=== PATIENT | female | born 1975 | race Caucasian/White ===

== ENCOUNTER 2017-02-04 10:39 | Inpatient (IN) | payer MEDICAID ==
[~2017-02-04] VITALS: Ht 157.5 cm; Wt 75.0 kg
[2017-02-04 10:43] VITALS: Ht 157.5 cm; Wt 75.0 kg
[2017-02-04] MEDS ORDERED: SOD CHLORIDE 0.9% 1,000 ML IV STA (11:36)
[2017-02-04 12:21] LABS: BASOPHILS % 0.2 % (0.0-2.0); HEMOGLOBIN 13.6 g/dl (12.0-16.0); LYMPHOCYTES # 1.1 10^3/ul (0.8-2.9); LYMPHOCYTES % 8.4 % (15.0-51.0); MEAN CORPUSCULAR HEMOGLOBIN 27.6 pg (29.0-33.0); MEAN CORPUSCULAR VOLUME 81.1 fl (82.0-101.0); MONOCYTE # 0.6 10^3/ul (0.3-0.9); MONOCYTES % 4.4 % (0.0-11.0); NEUTROPHIL # 11.1 10^3/ul (1.6-7.5); NEUTROPHILS % 86.8 % (39.0-77.0); PLATELET COUNT 354 10^3/UL (140-415); RED BLOOD COUNT 4.93 10^6/ul (4.20-5.40); RED CELL DISTRIBUTION WIDTH 13.9 % (11.5-14.5); WHITE BLOOD COUNT 12.8 10^3/ul (4.8-10.8)
[2017-02-04] MEDS ORDERED: KETOROLAC 30 MG INJ IV STA (12:38)
[2017-02-04 12:42] LABS: ALBUMIN 3.9 g/dl (3.3-4.9); ALBUMIN/GLOBULIN RATIO 1.14; BILIRUBIN,INDIRECT 0.5 mg/dl (0-1.1); BILIRUBIN,TOTAL 0.5 mg/dl (0.2-1.3); CALCIUM 8.6 mg/dl (8.4-10.2); CREATININE 0.53 mg/dl (0.44-1.00); POTASSIUM 3.3 mmol/L (3.5-5.1); TOTAL PROTEIN 7.3 g/dl (6.1-8.1)
[2017-02-04] MEDS ORDERED: SOD CHLORIDE 0.9% 100 ML ONE (12:55)
[2017-02-04] MEDS ORDERED: IOHEXOL 300MG/ML 150 ML BTL ONE (12:55)
[2017-02-04 13:14] LABS: ADD UMIC YES; UR ASCORBIC ACID NEGATIVE (NEGATIVE); UR BACTERIA FEW /HPF (NONE SEEN); UR BILIRUBIN (Dip) NEGATIVE (NEGATIVE); UR BLOOD (Dip) 1+ mg/dL (NEGATIVE); UR CLARITY CLEAR (CLEAR); UR COLOR YELLOW (YELLOW); UR GLUCOSE (Dip) NEGATIVE (NEGATIVE); UR KETONES (Dip) NEGATIVE (NEGATIVE); UR LEUKOCYTE ESTERASE (Dip) NEGATIVE Leu/ul (NEGATIVE); UR NITRITE (Dip) NEGATIVE (NEGATIVE); UR RBC 1 /HPF (0-5); UR SPECIFIC GRAVITY (Dip) 1.005 (1.003-1.030); UR TOTAL PROTEIN (Dip) NEGATIVE (NEGATIVE); UR UROBILINOGEN (Dip) NEGATIVE (NEGATIVE)
--- NOTE | 2017-02-04 14:09 | RADRPT ---
PROCEDURE: CT Abdomen and Pelvis with contrast. CLINICAL INDICATION: Abdominal pain. TECHNIQUE: CT scan of the abdomen and pelvis with contrast was performed on a multi-detector high- resolution CT scanner. The patient was scanned following the uncomplicated intravenous administrati on of 100 cc of Omnipaque 300. Coronal and sagittal reformatted images were obtained from the axial source images. One or more of the following dose reduction techniques were used: Automated exposur e control, adjustment of the mA and/or kV according to patient size, use of iterative reconstructio n technique. Images were reviewed on a high-resolution PACS workstation. The total exam CTDI equals 14.93 mGy and the total exam DLP equals 893.2 mGy-cm. COMPARISON: None available. FINDINGS: CT abdomen: Minimal bilateral lower lobe dependent atelectatic changes are present. A 7 mm calcified granuloma is present in the right middle lobe. Otherwise, the lung bases are clear. The heart size is normal , without pericardial thickening or effusion. There is extensive peripancreatic fluid and fat stranding with fluid extending into the bilateral pe ricolic gutters, subhepatic and subsplenic regions, as well as diffuse mesenteric fat stranding and fluid seen anteriorly within the upper abdomen. There is no evidence of organized fluid collection t o suggest abscess or pseudocyst. There is no evidence of focal hypoenhancing pancreatic region to amanda ggest necrosis. The liver is enlarged measuring 23 cm without focal mass or intrahepatic biliary dilatation. The sp vic is normal in size and homogeneous in density. The stomach is partially collapsed, but is gross ly unremarkable. Several stones are present within the gallbladder. The biliary tree is unremarkab le without evidence for biliary dilatation. The adrenal glands are symmetric and normal. The kidne ys are unremarkable. No renal calculus or obstructive uropathy or mass lesion is seen. The aorta is of normal caliber. There is no retroperitoneal lymphadenopathy. The david hepatis re gion is clear. The proximal small bowel loops are not diffusely fluid-filled and mildly distended. No definite transition point is seen. There is a small fat-containing umbilical hernia. CT pelvis: The small bowel loops situated within the pelvis are unremarkable. Bilateral fallopian occlusion de vices are present. The pelvic sidewalls and inguinal regions are clear. The sigmoid colon and rect um are unremarkable. The appendix is normal. No mass or lymphadenopathy is seen. A small amount of pelvic free fluid is likely physiologic. The bladder is normal. The surrounding osseous structures are unremarkable. No osteolytic or osteoblastic lesion is detect ed. IMPRESSION: 1. Extensive peripancreatic fat stranding and fluid extending into the surrounding mesentery and bi lateral pericolic gutters, consistent with severe acute pancreatitis. No evidence of organized fluid collection to suggest abscess or pseudocyst. 2. Moderately distended, fluid filled small bowel loops without evidence of transition point. The f indings most likely representing ileus. Follow-up abdominal x-rays may be obtained for further evalu ation. 3. Cholelithiasis without evidence of cholecystitis. 4. Hepatomegaly. 5. Small amount of pelvic free fluid, likely reactive or physiologic. RPTAT: JJ .Rodrigo Stone MD, Date Time Electronically viewed and signed by .Rodrigo Stone MD, on 02/04/2017 14:08 .A/
[2017-02-04] MEDS ORDERED: HYDROmorphONE 1 MG/ML SYG IV STA (14:28)
[2017-02-04] MEDS ORDERED: ONDANSETRON 4 MG INJ IV STA (14:28)
--- NOTE | 2017-02-04 14:49 | ERA ---
ER Documentation Chief Complaint Date/Time DATE: 02/04/17 TIME: 14:44 Chief Complaint Complains of abdominal pain and vomiting since last night HPI 41-year-old female complaining of abdominal pain 2 days. Patient states her abdominal pain is constant and worsening. Denies fevers but has episodes of vomiting 1 day. Has not taken medications for her symptoms. Has never experienced abdominal pain like this before. Denies sick contacts. Denies change in urination or bowel movements. Denies medical problems. NKDA. Surgical history denies. Social history: 1 cigarette a day. LNMP: 2 days ago ROS All systems reviewed and are negative except as per history of present illness. Allergies Allergies: Coded Allergies: No Known Allergy (Unverified , 02/04/17) PMhx/Soc Medical and Surgical Hx: pt denies Medical Hx, pt denies Surgical Hx Hx Alcohol Use: No Hx Substance Use: No Hx Tobacco Use: Yes (1cig/day) Smoking Status: Light tobacco smoker Physical Exam Vitals Vital Signs Date Time Temp Pulse Resp B/P Pulse Ox O2 Delivery O2 Flow Rate FiO2 02/04/17 10:43 98.2 106 20 113/62 99 Physical Exam GENERAL: The patient is well-appearing, well-nourished, in no acute distress CHEST: Clear to auscultation bilaterally. There are no rales, wheezes or rhonchi. HEART: Regular rate and rhythm. No murmurs, clicks, rubs or gallops. No S3 or S4. ABDOMEN: Nondistended. Diffuse tenderness to palpation over the abdomen. No organomegally. BACK: No midline or flank tenderness. SKIN: There is no apparent rash or petechiae. The skin is warm and dry. Result Diagram: 02/04/17 1152 02/04/17 1152 Results 24 hrs Laboratory Tests Test 02/04/17 11:52 02/04/17 12:47 White Blood Count 12.810^3/ul Red Blood Count 4.9310^6/ul Hemoglobin 13.6g/dl Hematocrit 40.0% Mean Corpuscular Volume 81.1fl Mean Corpuscular Hemoglobin 27.6pg Mean Corpuscular Hemoglobin Concent 34.0g/dl Red Cell Distribution Width 13.9% Platelet Count 84696^3/UL Mean Platelet Volume 10.0fl Neutrophils % 86.8% Lymphocytes % 8.4% Monocytes % 4.4% Eosinophils % 0.0% Basophils % 0.2% Nucleated Red Blood Cells % 0.0/100WBC Neutrophils # 11.110^3/ul Lymphocytes # 1.110^3/ul Monocytes # 0.610^3/ul Eosinophils # 0.010^3/ul Basophils # 0.010^3/ul Nucleated Red Blood Cells # 0.010^3/ul Sodium Level 137mmol/L Potassium Level 3.3mmol/L Chloride Level 100mmol/L Carbon Dioxide Level 27mmol/L Anion Gap 13 Blood Urea Nitrogen 6mg/dl Creatinine 0.53mg/dl Glucose Level 135mg/dl Calcium Level 8.6mg/dl Total Bilirubin 0.5mg/dl Direct Bilirubin 0.00mg/dl Indirect Bilirubin 0.5mg/dl Aspartate Amino Transf (AST/SGOT) 28IU/L Alanine Aminotransferase (ALT/SGPT) 45IU/L Alkaline Phosphatase 73IU/L Total Protein 7.3g/dl Albumin 3.9g/dl Globulin 3.40g/dl Albumin/Globulin Ratio 1.14 Lipase 599U/L Serum HCG, Qualitative NEGATIVE Urine Color YELLOW Urine Clarity CLEAR Urine pH 7.0 Urine Specific [place] 1.005 Urine Ketones NEGATIVEmg/dL Urine Nitrite NEGATIVEmg/dL Urine Bilirubin NEGATIVEmg/dL Urine Urobilinogen NEGATIVEmg/dL Urine Leukocyte Esterase NEGATIVELeu/ul Urine Microscopic RBC 1/HPF Urine Microscopic WBC 1/HPF Urine Bacteria FEW/HPF Urine Hemoglobin 1+mg/dL Urine Glucose NEGATIVEmg/dL Urine Total Protein NEGATIVEmg/dl Current Medications Medications (Trade) Dose Ordered Sig/Terrie Route PRN Reason Start Time Stop Time Status Last Admin Dose Admin Sodium Chloride (NS) 1,000 ml @ 1,000 mls/hr Q1H STAT IV 02/04/17 11:36 02/04/17 12:35 DC 02/04/17 12:00 Ketorolac Tromethamine (Toradol) 30 mg ONCE STAT IV 02/04/17 12:38 02/04/17 12:39 DC 02/04/17 13:14 IV Flush 10 ml 10 ml STK-MED ONCE .ROUTE 02/04/17 12:55 02/04/17 12:56 DC 02/04/17 13:53 Sodium Chloride (NS) 100 ml @ ud STK-MED ONCE .ROUTE 02/04/17 12:55 02/04/17 12:56 DC 02/04/17 13:54 Iohexol (Omnipaque 300mg/ ml) 150 ml STK-MED ONCE .ROUTE 02/04/17 12:55 02/04/17 12:56 DC 02/04/17 12:55 Hydromorphone HCl (Dilaudid) 1 mg ONCE STAT IV 02/04/17 14:28 02/04/17 14:29 DC 02/04/17 14:43 Ondansetron HCl (Zofran Inj) 4 mg ONCE STAT IV 02/04/17 14:28 02/04/17 14:29 DC 02/04/17 14:42 Procedures/MDM DIAGNOSTIC IMAGING REPORT Patient: JASMIN CAAL : 1975 Age: 41 Sex: F MR #: [id number] DOS: 02/04/17 1136 Ordering MD: ESTELA LEWIS PA-C Location: [facility] Room/Bed: PROCEDURE: CT Abdomen and Pelvis with contrast. CLINICAL INDICATION: Abdominal pain. TECHNIQUE: CT scan of the abdomen and pelvis with contrast was performed on a multi-detector high-resolution CT scanner. The patient was scanned following the uncomplicated intravenous administration of 100 cc of Omnipaque 300. Coronal and sagittal reformatted images were obtained from the axial source images. One or more of the following dose reduction techniques were used: Automated exposure control, adjustment of the mA and/or kV according to patient size, use of iterative reconstruction technique. Images were reviewed on a high -resolution PACS workstation. The total exam CTDI equals 14.93 mGy and the total exam DLP equals 893.2 mGy-cm. COMPARISON: None available. FINDINGS: CT abdomen: Minimal bilateral lower lobe dependent atelectatic changes are present. A 7 mm calcified granuloma is present in the right middle lobe. Otherwise, the lung bases are clear. The heart size is normal, without pericardial thickening or effusion. There is extensive peripancreatic fluid and fat stranding with fluid extending into the bilateral pericolic gutters, subhepatic and subsplenic regions, as well as diffuse mesenteric fat stranding and fluid seen anteriorly within the upper abdomen. There is no evidence of organized fluid collection to suggest abscess or pseudocyst. There is no evidence of focal hypoenhancing pancreatic region to suggest necrosis. The liver is enlarged measuring 23 cm without focal mass or intrahepatic biliary dilatation. The spleen is normal in size and homogeneous in density. The stomach is partially collapsed, but is grossly unremarkable. Several stones are present within the gallbladder. The biliary tree is unremarkable without evidence for biliary dilatation. The adrenal glands are symmetric and normal. The kidneys are unremarkable. No renal calculus or obstructive uropathy or mass lesion is seen. The aorta is of normal caliber. There is no retroperitoneal lymphadenopathy. The david hepatis region is clear. The proximal small bowel loops are not diffusely fluid-filled and mildly distended. No definite transition point is seen. There is a small fat-containing umbilical hernia. CT pelvis: The small bowel loops situated within the pelvis are unremarkable. Bilateral fallopian occlusion devices are present. The pelvic sidewalls and inguinal regions are clear. The sigmoid colon and rectum are unremarkable. The appendix is normal. No mass or lymphadenopathy is seen. A small amount of pelvic free fluid is likely physiologic. The bladder is normal. The surrounding osseous structures are unremarkable. No osteolytic or osteoblastic lesion is detected. IMPRESSION: 1. Extensive peripancreatic fat stranding and fluid extending into the surrounding mesentery and bilateral pericolic gutters, consistent with severe acute pancreatitis. No evidence of organized fluid collection to suggest abscess or pseudocyst. 2. Moderately distended, fluid filled small bowel loops without evidence of transition point. The findings most likely representing ileus. Follow-up abdominal x-rays may be obtained for further evaluation. 3. Cholelithiasis without evidence of cholecystitis. 4. Hepatomegaly. 5. Small amount of pelvic free fluid, likely reactive or physiologic. ER Course: 1 L NS given in ED with Toradol. US gallbladder pending at this time. Dilaudid and Zofran given in ED. MDM: 41-year-old female complaining of abdominal pain. Patient's CT scan shows severe pancreatitis. Patient will be admitted. Case was discussed with Dr. Burdick and he will carry through with admission. Patient is stable upon reevaluation and understands diagnosis. Patient is stable and vital signs are stable upon reevaluation. Patient will be given medication for pain control. Departure Diagnosis: Primary Impression: Pancreatitis Condition: Serious JOANNE LEWIS PA-C Feb 04, 2017 14:49
--- NOTE | 2017-02-04 15:22 | RADRPT ---
PROCEDURE: Abdominal Ultrasound (right upper quadrant). CLINICAL INDICATION: Abdominal pain. Pancreatitis. TECHNIQUE: Multiple real-time longitudinal and transverse images of the right upper quadrant of th e abdomen were acquired utilizing a curved array transducer. Images were reviewed on a high-resoluti on PACS workstation. COMPARISON: CT abdomen pelvis 02/04/2017 FINDINGS: The liver demonstrates increased echogenicity consistent with fatty infiltration. Liver is at the u pper limits of normal for size. No focal masses are identified. There is no evidence of intra or e xtrahepatic ductal dilatation. The common bile duct measures 5.7 mm in diameter. Gallstones are vivian ntified within the gallbladder. Gallbladder wall is not well evaluated due to contracted state of th e gallbladder. There is no obvious gallbladder wall thickening. The pancreas is obscured by bowel gas No free fluid is identified. There is no evidence of right hydronephrosis or renal calcification. The right kidney measures 11.1 cm in length. The visualized portions of the aorta and inferior vena cava are within normal limits. IMPRESSION: 1. Cholelithiasis. No definitive gallbladder wall thickening of the gallbladder is contracted which limits evaluation. 2. Fatty infiltration of the liver. 3. Nonvisualization of the pancreas. 4. Otherwise unremarkable right upper quadrant ultrasound. Recommend correlation with CT abdomen pe lvis performed concurrently. RPTAT: KK .Addy David MD, MD Date Time Electronically viewed and signed by .Addy David MD, MD on 02/04/2017 15:21 .B/
[2017-02-04] MEDS ORDERED: ONDANSETRON 4 MG INJ IV PRN (16:00)
[2017-02-04] MEDS ORDERED: ACETAMINOPHEN 325 MG TAB PO PRN ×2 (16:00→17:00)
[2017-02-04] MEDS ORDERED: POTASSIUM CHLORIDE (SR) 20 MEQ TAB PO STA (16:40)
[2017-02-04] MEDS ORDERED: ONDANSETRON 4 MG TAB PO PRN (17:00)
[2017-02-04] MEDS ORDERED: NACL 0.9% 3 ML SYG IV SCH (17:00)
[2017-02-04] MEDS ORDERED: DOCUSATE SODIUM 100 MG CAP PO PRN (17:00)
[2017-02-04] MEDS ORDERED: METOCLOPRAMIDE 10 MG INJ IV PRN (17:00)
[2017-02-04] MEDS ORDERED: MAGNESIUM HYDROXIDE 30ML CUP PO PRN (17:00)
[2017-02-04] MEDS: SOD CHLORIDE 0.9% 1,000 ML IV SCH ×2 (17:10→23:33)
--- NOTE | 2017-02-04 18:39 | HP ---
Date/Time of Note Date/Time of Note DATE: 02/04/17 TIME: 18:35 Assessment/Plan VTE Prophylaxis VTE Prophylaxis Intervention: SCD's Assessment/Plan Assessment/Plan 41 yo F with no known chronic medical conditions presents with 2 days of vomiting, abd pain. Elevated lipase concerning for pancreatitis. Etio unclear as pt with gallstones but no evidence of biliary obstruction, no known hx heavy EtOH abuse -IVFs and NPO -check a1c and lipids -consider repeat imaging in 1-2 days if pain not improving HPI/ROS Admit Date/Time Admit Date/Time Hx of Present Illness CC abd pain HPI 41 yo F with no known pmhx presents with 2 days diffuse abd pain though mostly in epigastric area. +vomiting PMH/Family/Social Family History Significant Family History: diabetes Social History lives in the community rare EtOH Smoking Status: Light tobacco smoker Exam/Review of Systems Vital Signs Vitals Vital Signs Date Time Temp Pulse Resp B/P Pulse Ox O2 Delivery O2 Flow Rate FiO2 02/04/17 16:02 98.8 88 18 103/56 98 Room Air Exam Exam nad laying in bed EOMI MMM no jaundice rrr lungs clear abd diffusely ttp most pronounced in epigastric region, no rebound or guarding no edema imaging reviewed, lipase elevated Labs Result Diagram: 02/04/17 1152 02/04/17 1152 Medications Medications Current Medications Sodium Chloride (NS) 1,000 ml @ 125 mls/hr Q8H IV Last administered on t 17:10; Admin Dose 125 MLS/HR; Start 02/04/17 at 16:36 Ondansetron HCl (Zofran Tab) 4 mg Q6H PRN PO NAUSEA AND/OR VOMITING; Start at 17:00 Ondansetron HCl (Zofran Inj) 4 mg Q6H PRN IV NAUSEA AND/OR VOMITING; Start at 17:00 Metoclopramide HCl (Reglan) 10 mg Q6H PRN IV NAUSEA AND/OR VOMITING; Start at 17:00 Acetaminophen (Tylenol Tab) 650 mg Q6H PRN PO PAIN LEVEL 1-3 OR FEVER; Start at 17:00 Acetaminophen/ Hydrocodone Bitart ([place] (5/325)) 1 tab Q6H PRN PO MODERATE PAIN LEVEL 4-6; Start 02/04/17 at 17:00 Morphine Sulfate (morphine) 2 mg Q4H PRN IV SEVERE PAIN LEVEL 7-10; Start 02/04 at 17:00 Docusate Sodium (Colace) 100 mg Q12H PRN PO CONSTIPATION; Start 02/04/17 at 17: 00 Magnesium Hydroxide (Milk Of Mag) 30 ml DAILY PRN PO CONSTIPATION; Start at 17:00 Enoxaparin Sodium (Lovenox) 40 mg DAILY SC ; Start 02/05/17 at 09:00 RHEA LUKE MD Feb 04, 2017 18:38
[2017-02-04 19:06] LABS: CHOL/HDL RATIO 5.6 RATIO
[2017-02-04 19:16] VITALS: PULSE 88; TEMP 98.8
[2017-02-04 20:15] VITALS: BP 117/58; RESP 19
[2017-02-04] MEDS: ONDANSETRON 4 MG INJ IV PRN (20:19)
[2017-02-04] MEDS: morphine 2 MG INJ IV PRN (20:19)
[2017-02-04] MEDS: HYDROCODONE/APAP (5/325) TAB PO PRN (22:16)
[2017-02-05 02:15] VITALS: BP 107/57; RESP 18
[2017-02-05] MEDS: ONDANSETRON 4 MG INJ IV PRN (02:29)
[2017-02-05] MEDS: morphine 2 MG INJ IV PRN ×5 (02:30→21:31)
[2017-02-05 06:26] LABS: BASOPHILS % 0.2 % (0.0-2.0); EOSINOPHILS # 0.1 10^3/ul (0.0-0.5); EOSINOPHILS % 0.5 % (0.0-7.0); HEMATOCRIT 35.7 % (37.0-47.0); LYMPHOCYTES # 1.2 10^3/ul (0.8-2.9); LYMPHOCYTES % 8.9 % (15.0-51.0); MEAN CORPUSCULAR HEMOGLOBIN 28.5 pg (29.0-33.0); MEAN CORPUSCULAR HGB CONC 33.6 g/dl (32.0-37.0); MEAN CORPUSCULAR VOLUME 84.8 fl (82.0-101.0); MEAN PLATELET VOLUME 10.1 fl (7.4-10.4); MONOCYTE # 0.8 10^3/ul (0.3-0.9); NEUTROPHILS % 83.9 % (39.0-77.0); PLATELET COUNT 318 10^3/UL (140-415); RED BLOOD COUNT 4.21 10^6/ul (4.20-5.40); RED CELL DISTRIBUTION WIDTH 14.2 % (11.5-14.5); WHITE BLOOD COUNT 13.1 10^3/ul (4.8-10.8)
[2017-02-05 06:41] LABS: POSITIVE DIFF @See below
[2017-02-05 07:08] LABS: ALBUMIN 3.3 g/dl (3.3-4.9); ALBUMIN/GLOBULIN RATIO 1.03; BILIRUBIN,INDIRECT 0.5 mg/dl (0-1.1); BILIRUBIN,TOTAL 0.5 mg/dl (0.2-1.3); CALCIUM 8.1 mg/dl (8.4-10.2); CREATININE 0.73 mg/dl (0.44-1.00); POTASSIUM 3.4 mmol/L (3.5-5.1); TOTAL PROTEIN 6.5 g/dl (6.1-8.1)
[2017-02-05] MEDS: SOD CHLORIDE 0.9% 1,000 ML IV SCH ×2 (07:52→16:42)
[2017-02-05 08:24] VITALS: BP 112/66; RESP 18
[2017-02-05] MEDS: ENOXAPARIN 40 MG/0.4 ML SYG SC SCH (08:48)
[2017-02-05] MEDS: HYDROCODONE/APAP (5/325) TAB PO PRN ×2 (14:00→20:39)
[2017-02-05 14:23] VITALS: BP 116/63; RESP 18
--- NOTE | 2017-02-05 15:52 | PN ---
Date/Time of Note Date/Time of Note DATE: 02/05/17 TIME: 15:42 Assessment/Plan VTE Prophylaxis VTE Prophylaxis Intervention: LMWH Assessment/Plan Assessment/Plan 1. Acute pancreatitis, still has severe abdominal pain but no nausea or vomiting , may be able to start diet tomorrow 2. Cholelithiasis 3. Hypertriglyceridemia, repeat 4. DVT prophylaxis: lovenox Subjective 24 Hr Interval Summary Free Text/Dictation severe abdominal pain, less than yesterday, no nausea or vomiting Exam/Review of Systems Vital Signs Vitals Vital Signs Date Time Temp Pulse Resp B/P Pulse Ox O2 Delivery O2 Flow Rate FiO2 02/05/17 14:23 99.5 104 18 116/63 94 02/04/17 19:16 Room Air Intake and Output 02/04/17 02/04/17 02/05/17 15:00 23:00 07:00 Intake Total 650 ml Balance 650 ml Exam Constitutional: alert, oriented, well developed Psych: nl mood/affect, no complaints Head: atraumatic, normocephalic Eyes: EOMI, nl conjunctiva, nl lids ENMT: nl external ears & nose, nl lips & teeth, nl nasal mucosa & septum Neck: non-tender, supple Respiratory: clear to auscultation, normal air movement, No congested cough, No crackles/rales, No diminished breath sounds, No intercostal retraction, No labored breathing, No other, No respirations, No tactile fremitus, No wheezing Cardiovascular: nl pulses, regular rate and rhythm, No S3, No S4, No bruits, No diastolic murmur, No edema, No gallop, No irregular rhythm, No jugular venous distention (JVD), No murmurs/extra sounds, No other, No rub, No systolic murmur Gastrointestinal: nl liver, spleen, tender (upper abdominal tenderness) Musculoskeletal: nl extremities to inspection Extremities: normal pulses, No calf tenderness, No clubbing, No cyanosis, No edema, No other, No palpable cord, No pitting pedal edema, No tenderness Neurological: CHIEF VENDOR QUALITY II-XII intact, nl mental status, nl speech, nl strength Results Result Diagram: 02/05/17 0533 02/05/17 0533 Results 24 hrs Laboratory Tests Test 02/04/17 16:40 02/04/17 17:00 02/05/17 05:33 Ethyl Alcohol Level < 10.0 Hemoglobin A1c 5.9 Triglycerides Level 451 H Cholesterol Level 186 LDL Cholesterol, Calculated 63 HDL Cholesterol 33 L Cholesterol/HDL Ratio 5.6 White Blood Count 13.1 H Red Blood Count 4.21 Hemoglobin 12.0 Hematocrit 35.7 L Mean Corpuscular Volume 84.8 Mean Corpuscular Hemoglobin 28.5 L Mean Corpuscular Hemoglobin Concent 33.6 Red Cell Distribution Width 14.2 Platelet Count 318 Mean Platelet Volume 10.1 Neutrophils % 83.9 H Lymphocytes % 8.9 L Monocytes % 6.0 Eosinophils % 0.5 Basophils % 0.2 Nucleated Red Blood Cells % 0.0 Neutrophils # 11.0 H Lymphocytes # 1.2 Monocytes # 0.8 Eosinophils # 0.1 Basophils # 0.0 Nucleated Red Blood Cells # 0.0 Sodium Level 143 Potassium Level 3.4 L Chloride Level 109 Carbon Dioxide Level 28 Anion Gap 9 Blood Urea Nitrogen 8 Creatinine 0.73 Glucose Level 128 Calcium Level 8.1 L Total Bilirubin 0.5 Direct Bilirubin 0.00 Indirect Bilirubin 0.5 Aspartate Amino Transf (AST/SGOT) 28 Alanine Aminotransferase (ALT/SGPT) 42 Alkaline Phosphatase 74 Total Protein 6.5 Albumin 3.3 Globulin 3.20 Albumin/Globulin Ratio 1.03 Medications Medications Current Medications Sodium Chloride (NS) 1,000 ml @ 125 mls/hr Q8H IV Last administered on 07:52; Admin Dose 125 MLS/HR; Start 02/04/17 at 16:36 Ondansetron HCl (Zofran Tab) 4 mg Q6H PRN PO NAUSEA AND/OR VOMITING; Start at 17:00 Ondansetron HCl (Zofran Inj) 4 mg Q6H PRN IV NAUSEA AND/OR VOMITING Last administered on 02/05/17 02:29; Admin Dose 4 MG; Start 02/04/17 at 17:00 Metoclopramide HCl (Reglan) 10 mg Q6H PRN IV NAUSEA AND/OR VOMITING; Start at 17:00 Acetaminophen (Tylenol Tab) 650 mg Q6H PRN PO PAIN LEVEL 1-3 OR FEVER; Start at 17:00 Acetaminophen/ Hydrocodone Bitart ([place] (5/325)) 1 tab Q6H PRN PO MODERATE PAIN LEVEL 4-6 Last administered on 02/05/17 14:00; Admin Dose 1 TAB; Start at 17:00 Morphine Sulfate (morphine) 2 mg Q4H PRN IV SEVERE PAIN LEVEL 7-10 Last administered on 02/05/17 11:50; Admin Dose 2 MG; Start 02/04/17 at 17:00 Docusate Sodium (Colace) 100 mg Q12H PRN PO CONSTIPATION; Start 02/04/17 at 17: 00 Magnesium Hydroxide (Milk Of Mag) 30 ml DAILY PRN PO CONSTIPATION; Start at 17:00 Enoxaparin Sodium (Lovenox) 40 mg DAILY SC Last administered on 02/05/17 08:48 ; Admin Dose 40 MG; Start 02/05/17 at 09:00 VIKY ROCHA MD Feb 05, 2017 15:52
[2017-02-05] MEDS ORDERED: POTASSIUM CHLORIDE (SR) 20 MEQ TAB PO STA (18:16)
[2017-02-05 20:14] VITALS: BP 106/54; RESP 18
[2017-02-06] MEDS: morphine 2 MG INJ IV PRN ×5 (01:40→20:44)
[2017-02-06] MEDS: SOD CHLORIDE 0.9% 1,000 ML IV SCH ×4 (01:40→23:05)
[2017-02-06] MEDS: HYDROCODONE/APAP (5/325) TAB PO PRN ×3 (03:14→18:12)
[2017-02-06 07:09] LABS: ALBUMIN 3.2 g/dl (3.3-4.9); BILIRUBIN,INDIRECT 0.6 mg/dl (0-1.1); BILIRUBIN,TOTAL 0.6 mg/dl (0.2-1.3); CALCIUM 8.1 mg/dl (8.4-10.2); CREATININE 0.58 mg/dl (0.44-1.00); POTASSIUM 3.4 mmol/L (3.5-5.1); TOTAL PROTEIN 6.4 g/dl (6.1-8.1)
[2017-02-06 07:40] VITALS: BP 104/65; RESP 18
[2017-02-06] MEDS: ENOXAPARIN 40 MG/0.4 ML SYG SC SCH (08:34)
--- NOTE | 2017-02-06 12:52 | PN ---
Date/Time of Note Date/Time of Note DATE: 02/06/17 TIME: 12:44 Assessment/Plan VTE Prophylaxis VTE Prophylaxis Intervention: SCD's Lines/Catheters IV Catheter Type (from Nrsg): Peripheral IV Assessment/Plan Assessment/Plan 41 yo F here for pancreatitis 1. Acute pancreatitis, still has severe abdominal pain but no nausea or vomiting , advance diet slowly 2. Cholelithiasis-->will need outpatient gen surg eval 3. Hypertriglyceridemia, repeat slightly better 4. DVT prophylaxis: lovenox 5. pre DM-->outpatient f/u Subjective 24 Hr Interval Summary Free Text/Dictation abd pain slightly improved but had very bad abd pain when she tried to eat a regular meal Exam/Review of Systems Vital Signs Vitals Vital Signs Date Time Temp Pulse Resp B/P Pulse Ox O2 Delivery O2 Flow Rate FiO2 02/06/17 07:40 98.0 94 18 104/65 92 02/04/17 19:16 Room Air Intake and Output 02/05/17 02/05/17 02/06/17 15:00 23:00 07:00 Intake Total 900 ml 1475 ml Balance 900 ml 1475 ml Exam nad sitting in chair no mrg lungs clear abd soft no rashes TGs slightly high, a1c ok Results Result Diagram: 02/05/17 0533 02/06/17 0442 Results 24 hrs Laboratory Tests Test 02/06/17 04:42 Sodium Level 147 H Potassium Level 3.4 L Chloride Level 114 H Carbon Dioxide Level 24 Anion Gap 12 Blood Urea Nitrogen 7 Creatinine 0.58 Glucose Level 118 Calcium Level 8.1 L Total Bilirubin 0.6 Direct Bilirubin 0.00 Indirect Bilirubin 0.6 Aspartate Amino Transf (AST/SGOT) 27 Alanine Aminotransferase (ALT/SGPT) 30 Alkaline Phosphatase 87 Total Protein 6.4 Albumin 3.2 L Globulin 3.20 Albumin/Globulin Ratio 1.00 Triglycerides Level 358 H Lipase 138 Medications Medications Current Medications Sodium Chloride (NS) 1,000 ml @ 125 mls/hr Q8H IV Last administered on t 08:33; Admin Dose 125 MLS/HR; Start 02/04/17 at 16:36 Ondansetron HCl (Zofran Tab) 4 mg Q6H PRN PO NAUSEA AND/OR VOMITING; Start at 17:00 Ondansetron HCl (Zofran Inj) 4 mg Q6H PRN IV NAUSEA AND/OR VOMITING Last administered on 02/05/17 02:29; Admin Dose 4 MG; Start 02/04/17 at 17:00 Metoclopramide HCl (Reglan) 10 mg Q6H PRN IV NAUSEA AND/OR VOMITING; Start at 17:00 Acetaminophen (Tylenol Tab) 650 mg Q6H PRN PO PAIN LEVEL 1-3 OR FEVER; Start at 17:00 Acetaminophen/ Hydrocodone Bitart ([place] (5/325)) 1 tab Q6H PRN PO MODERATE PAIN LEVEL 4-6 Last administered on 02/06/17 10:00; Admin Dose 1 TAB; Start at 17:00 Morphine Sulfate (morphine) 2 mg Q4H PRN IV SEVERE PAIN LEVEL 7-10 Last administered on 02/06/17 12:21; Admin Dose 2 MG; Start 02/04/17 at 17:00 Docusate Sodium (Colace) 100 mg Q12H PRN PO CONSTIPATION; Start 02/04/17 at 17: 00 Magnesium Hydroxide (Milk Of Mag) 30 ml DAILY PRN PO CONSTIPATION; Start at 17:00 Enoxaparin Sodium (Lovenox) 40 mg DAILY SC Last administered on 02/06/17 08:34 ; Admin Dose 40 MG; Start 02/05/17 at 09:00 RHEA LUKE MD Feb 06, 2017 12:52
[2017-02-06 14:13] VITALS: BP 110/64; RESP 18
[2017-02-06 20:01] VITALS: BP 111/68; RESP 19
[2017-02-07] MEDS: morphine 2 MG INJ IV PRN (01:21)
[2017-02-07 02:15] VITALS: BP 102/54; RESP 20
[2017-02-07] MEDS ORDERED: morphine 2 MG INJ IV ONE (06:00)
[2017-02-07 07:00] VITALS: RESP 20
[2017-02-07] MEDS ORDERED: SOD CHLORIDE 0.9% 100 ML ONE (07:39)
[2017-02-07] MEDS ORDERED: IOHEXOL 100 ML ONE (07:39)
--- NOTE | 2017-02-07 08:13 | RADRPT ---
PROCEDURE: CT angiogram of the chest with contrast. CLINICAL INDICATION: Chest pain. TECHNIQUE: CT angiogram of the chest was obtained using a multi-detector high-resolution CT. Con tiguous axial images were obtained during the dynamic injection of 80 cc of Omnipaque 350 intravenou s contrast. Coronal and sagittal reformatted images were obtained. 3-D reformatted images were als o obtained. Images were reviewed on a PACS workstation. One or more of the following dose reduction techniques were used: - Automated exposure control. - Adjustment of the mA and/or kV according to patient size. - Use of iterative reconstruction technique. Exam CTD/vol = 15.25 mGy. Total exam DLP = 500.40 mGy-cm. COMPARISON: None. FINDINGS: The main pulmonary artery followed to the segmental divisions are well opacified. There is no filli ng defect or evidence of pulmonary embolism. The heart is mildly enlarged. There is no pericardial thickening or effusion. The aorta is of normal course and caliber without evidence of aneurysm or dissection. There is no evidence of chest wall mass. The visualized thyroid is unremarkable. There is subsegme ntal axillary lymph nodes bilaterally. There are enlarged paratracheal, subcarinal and prevascular l ymph nodes with the largest measuring 1.8 x 1.3 cm. There is a cluster of hyperdense structures post erior to the right hilum measuring 2.9 x 1.6 cm. There is bilateral peribronchial thickening. There are bibasilar atelectatic and consolidative changes. There are bilateral small pleural effusions. Th ere is a calcified granuloma within the right middle lobe. Limited evaluation of the upper abdomen is demonstrates peripancreatic stranding and fluid within th e left upper abdomen. IMPRESSION: No evidence of pulmonary embolism or aortic dissection. Moderate bibasilar atelectatic and consolidative changes. Bilateral small pleural effusions. Mild mediastinal and bilateral hilar adenopathy. Mild cardiomegaly. Cluster of hyperdense structures posterior to the right hilum measuring 2.9 x 1.6 cm could represent pulmonary arteriovenous malformations or lymph nodes. Peripancreatic stranding and fluid consistent with pancreatitis. .Carl Gorman MD, MD Date Time Electronically viewed and signed by .Carl Gorman MD, MD on 02/07/2017 08:12 .T/
[2017-02-07] MEDS: SOD CHLORIDE 0.9% 1,000 ML IV SCH ×2 (08:32→16:35)
[2017-02-07] MEDS: ENOXAPARIN 40 MG/0.4 ML SYG SC SCH (08:33)
[2017-02-07] MEDS: HYDROCODONE/APAP (5/325) TAB PO PRN ×3 (10:03→22:18)
--- NOTE | 2017-02-07 15:16 | PN ---
Date/Time of Note Date/Time of Note DATE: 02/07/17 TIME: 15:12 Assessment/Plan VTE Prophylaxis VTE Prophylaxis Intervention: SCD's Lines/Catheters IV Catheter Type (from Nrsg): Saline Lock Assessment/Plan Assessment/Plan 41 yo F here for pancreatitis 1. Acute pancreatitis, still has severe abdominal pain but no nausea or vomiting , advance diet slowly. Repeat imaging with continued pancreatitis 2. Cholelithiasis-->will need outpatient gen surg eval 3. Hypertriglyceridemia, repeat slightly better 4. DVT prophylaxis: lovenox 5. pre DM-->outpatient f/u Imaging findings May need post discharge f/u Cluster of hyperdense structures posterior to the right hilum measuring 2.9 x 1.6 cm could represent pulmonary arteriovenous malformations or lymph nodes. Subjective 24 Hr Interval Summary Free Text/Dictation Still having trouble tolerating food. OK with liquids Exam/Review of Systems Vital Signs Vitals Vital Signs Date Time Temp Pulse Resp B/P Pulse Ox O2 Delivery O2 Flow Rate FiO2 02/07/17 07:00 20 95 Nasal Cannula 2.0 02/07/17 02:15 99.1 96 102/54 Intake and Output 02/06/17 02/06/17 02/07/17 15:00 23:00 07:00 Intake Total 510 ml 1240 ml 1450 ml Balance 510 ml 1240 ml 1450 ml Exam nad no mrg lungs clear abd soft no rashes CTA overnight with persistent pancreatitis Results Result Diagram: 02/05/17 0533 02/06/17 0442 Medications Medications Current Medications Sodium Chloride (NS) 1,000 ml @ 125 mls/hr Q8H IV Last administered on 08:32; Admin Dose 125 MLS/HR; Start 02/04/17 at 16:36 Ondansetron HCl (Zofran Tab) 4 mg Q6H PRN PO NAUSEA AND/OR VOMITING; Start at 17:00 Ondansetron HCl (Zofran Inj) 4 mg Q6H PRN IV NAUSEA AND/OR VOMITING Last administered on 02/05/17 02:29; Admin Dose 4 MG; Start 02/04/17 at 17:00 Metoclopramide HCl (Reglan) 10 mg Q6H PRN IV NAUSEA AND/OR VOMITING; Start at 17:00 Acetaminophen (Tylenol Tab) 650 mg Q6H PRN PO PAIN LEVEL 1-3 OR FEVER; Start at 17:00 Acetaminophen/ Hydrocodone Bitart ([place] (5/325)) 1 tab Q6H PRN PO MODERATE PAIN LEVEL 4-6 Last administered on 02/07/17 10:03; Admin Dose 1 TAB; Start at 17:00 Morphine Sulfate (morphine) 2 mg Q4H PRN IV SEVERE PAIN LEVEL 7-10 Last administered on 02/07/17 01:21; Admin Dose 2 MG; Start 02/04/17 at 17:00 Docusate Sodium (Colace) 100 mg Q12H PRN PO CONSTIPATION; Start 02/04/17 at 17: 00 Magnesium Hydroxide (Milk Of Mag) 30 ml DAILY PRN PO CONSTIPATION; Start at 17:00 Enoxaparin Sodium (Lovenox) 40 mg DAILY SC Last administered on 02/07/17 08:33 ; Admin Dose 40 MG; Start 02/05/17 at 09:00 RHEA LUKE MD Feb 07, 2017 15:16
[2017-02-07 20:28] VITALS: BP 122/76; RESP 18
[2017-02-08] MEDS: SOD CHLORIDE 0.9% 1,000 ML IV SCH ×3 (00:43→16:05)
[2017-02-08 03:03] VITALS: BP 124/77; RESP 18
[2017-02-08] MEDS: HYDROCODONE/APAP (5/325) TAB PO PRN ×3 (05:26→20:30)
[2017-02-08 06:26] LABS: ALBUMIN 2.7 g/dl (3.3-4.9); ALBUMIN/GLOBULIN RATIO 0.81; BILIRUBIN,INDIRECT 0.1 mg/dl (0-1.1); BILIRUBIN,TOTAL 0.1 mg/dl (0.2-1.3); CALCIUM 8.3 mg/dl (8.4-10.2); CREATININE 0.46 mg/dl (0.44-1.00)
[2017-02-08 07:51] VITALS: BP 125/72; RESP 20
[2017-02-08] MEDS: ENOXAPARIN 40 MG/0.4 ML SYG SC SCH (08:30)
[2017-02-08 14:00] VITALS: BP 122/73; RESP 18
[2017-02-08] MEDS ORDERED: POTASSIUM CHLORIDE (SR) 20 MEQ TAB PO STA (14:54)
--- NOTE | 2017-02-08 15:12 | PN ---
Date/Time of Note Date/Time of Note DATE: 02/08/17 TIME: 15:07 Assessment/Plan VTE Prophylaxis VTE Prophylaxis Intervention: LMWH Lines/Catheters [facility] Saline Lock Assessment/Plan Chief Complaint/Hosp Course Assessment/Plan: 41 yo F presented with abdominal pain, positive pancreatitis, unclear source. 1. Acute pancreatitis-lipase was normal over 24 hours ago, but patient still has severe abdominal pain- but no nausea or vomiting. Appears to be tolerating full liquid diet. Repeat imaging CT chest yesterday showed continued pancreatitis, but negative pulmonary embolism, this scan also showed Cluster of hyperdense structures posterior to the right hilum measuring 2.9 x 1.6 cm could represent pulmonary arteriovenous malformations or lymph nodes. -We will cautiously continue liquid diet, but recheck lipase level since it has been a few days since it was last checked. Also given positive gallstones on ultrasound done a few days ago, and with continued positive abdominal pain on physical exam, will also get MRCP and consider GI consult. This is also because the patient has had prior history of esophageal pain in the past 2. Cholelithiasis--- consider outpatient general surgery consult, but again we will go ahead and get MRCP and GI consult while patient here in the hospital now. LFTs are normal 3. Hypertriglyceridemia, repeat slightly better, but still elevated, will start Lipitor 4. DVT prophylaxis: lovenox 5. pre DM-->outpatient f/u Problems: Subjective 24 Hr Interval Summary Free Text/Dictation Patient on full liquid diet, but still complaining of abdominal pain. Exam/Review of Systems Vital Signs Vitals Vital Signs Date Time Temp Pulse Resp B/P Pulse Ox O2 Delivery O2 Flow Rate FiO2 02/08/17 14:00 98.6 71 18 122/73 98 02/08/17 09:00 Nasal Cannula 2.0 Intake and Output 02/07/17 02/07/17 02/08/17 15:00 23:00 07:00 Intake Total 240 ml 2150 ml 1980 ml Balance 240 ml 2150 ml 1980 ml Exam Answering questions, in mild distress, alert no mrg lungs clear abd positive tenderness to palpation epigastric area no rashes Results Result Diagram: 02/05/17 0533 02/08/17 0457 Results 24 hrs Laboratory Tests Test 02/08/17 04:57 Sodium Level 138 Potassium Level 3.0 L Chloride Level 105 Carbon Dioxide Level 29 Anion Gap 7 L Blood Urea Nitrogen 5 L Creatinine 0.46 Glucose Level 122 Calcium Level 8.3 L Total Bilirubin 0.1 L Direct Bilirubin 0.00 Indirect Bilirubin 0.1 Aspartate Amino Transf (AST/SGOT) 35 Alanine Aminotransferase (ALT/SGPT) 50 Alkaline Phosphatase 84 Total Protein 6.0 L Albumin 2.7 L Globulin 3.30 H Albumin/Globulin Ratio 0.81 Medications Medications Current Medications Sodium Chloride (NS) 1,000 ml @ 75 mls/hr [id number] IV Last administered on 02/08 08:28; Admin Dose 125 MLS/HR; Start 02/04/17 at 16:36 Ondansetron HCl (Zofran Tab) 4 mg Q6H PRN PO NAUSEA AND/OR VOMITING; Start at 17:00 Ondansetron HCl (Zofran Inj) 4 mg Q6H PRN IV NAUSEA AND/OR VOMITING Last administered on 02/05/17 02:29; Admin Dose 4 MG; Start 02/04/17 at 17:00 Metoclopramide HCl (Reglan) 10 mg Q6H PRN IV NAUSEA AND/OR VOMITING; Start at 17:00 Acetaminophen (Tylenol Tab) 650 mg Q6H PRN PO PAIN LEVEL 1-3 OR FEVER; Start at 17:00 Acetaminophen/ Hydrocodone Bitart ([place] (5/325)) 1 tab Q6H PRN PO MODERATE PAIN LEVEL 4-6 Last administered on 02/08/17 11:53; Admin Dose 1 TAB; Start at 17:00 Morphine Sulfate (morphine) 2 mg Q4H PRN IV SEVERE PAIN LEVEL 7-10 Last administered on 02/07/17 01:21; Admin Dose 2 MG; Start 02/04/17 at 17:00 Docusate Sodium (Colace) 100 mg Q12H PRN PO CONSTIPATION; Start 02/04/17 at 17: 00 Magnesium Hydroxide (Milk Of Mag) 30 ml DAILY PRN PO CONSTIPATION Last administered on 02/07/17 18:27; Admin Dose 30 ML; Start 02/04/17 at 17:00 Enoxaparin Sodium (Lovenox) 40 mg DAILY SC Last administered on 9/24/17at 08:33 ; Admin Dose 40 MG; Start 02/05/17 at 09:00 Atorvastatin Calcium (Lipitor) 40 mg HS PO ; Start 02/08/17 at 21:00 DANISH ORTIZ Feb 08, 2017 15:12
--- NOTE | 2017-02-08 18:05 | QN ---
Documentation Comment Interim note Full note to follow Patient gone to MRI/MRCP BRAXTON MILLER MD Feb 08, 2017 18:05
[2017-02-08] MEDS: ATORVASTATIN 40 MG TAB PO SCH (20:29)
--- NOTE | 2017-02-08 20:41 | RADRPT ---
PROCEDURE: MRCP. CLINICAL INDICATION: Abdominal pain. Pancreatitis. TECHNIQUE: MRCP was performed on a high field MRI scanner. Patient was examined without contrast. 3-D coronal rotating MIP images of the biliary tree are available for review. COMPARISON: CTA chest 02/07/2017. Gallbladder ultrasound 02/04/2017. CT abdomen/pelvis 02/04/2017. FINDINGS: Large stones measuring up to 1.8 cm fill the gallbladder lumen. The gallbladder is not distended. Mi ld concentric gallbladder wall edema is observed. There is no pericholecystic fluid. There is no int rahepatic or extrahepatic biliary duct dilatation. The common bile duct measures approximately 6 mm in greatest diameter, which is at the upper range of normal. There is no pancreatic duct dilatation. Extensive pancreatic and peripancreatic edema is observed compatible with acute pancreatitis. There is no evidence of peripancreatic fluid collection. The adrenal glands are unremarkable. The kidneys are symmetric in size and signal intensity. There i s no hydronephrosis or perinephric fluid collection. The abdominal aorta is normal in caliber. There is no periaortic / retroperitoneal lymphadenopathy. The stomach is collapsed. There is no ascites. The dielectric artifact is present on the majority of the sequences and limits evaluation of the proximal pancreas, distal stomach and duodenum. IMPRESSION: Extensive pancreatic and peripancreatic edema compatible with acute pancreatitis. There is no peripa ncreatic fluid collection. Cholelithiasis with mild concentric gallbladder wall edema. The gallbladder is not distended and the re is no pericholecystic fluid. No biliary dilatation or evidence of choledocholithiasis. RPTAT: HLST .Brenda Marquis MD, Date Time Electronically viewed and signed by .Brenda Marquis MD, MD on 02/08/2017 20:41 .T/
[2017-02-08 20:46] VITALS: BP 123/77; RESP 18
[2017-02-09] MEDS: HYDROCODONE/APAP (5/325) TAB PO PRN ×2 (02:33→08:35)
[2017-02-09 02:43] VITALS: BP 108/67; RESP 18
[2017-02-09] MEDS: SOD CHLORIDE 0.9% 1,000 ML IV SCH ×2 (05:45→20:48)
[2017-02-09 06:33] LABS: BASOPHILS % 0.1 % (0.0-2.0); EOSINOPHILS # 0.3 10^3/ul (0.0-0.5); EOSINOPHILS % 2.7 % (0.0-7.0); HEMATOCRIT 27.8 % (37.0-47.0); LYMPHOCYTES # 1.4 10^3/ul (0.8-2.9); LYMPHOCYTES % 14.6 % (15.0-51.0); MEAN CORPUSCULAR HEMOGLOBIN 27.4 pg (29.0-33.0); MEAN CORPUSCULAR HGB CONC 32.4 g/dl (32.0-37.0); MEAN CORPUSCULAR VOLUME 84.5 fl (82.0-101.0); MEAN PLATELET VOLUME 9.7 fl (7.4-10.4); MONOCYTE # 0.8 10^3/ul (0.3-0.9); MONOCYTES % 8.5 % (0.0-11.0); NEUTROPHIL # 7.1 10^3/ul (1.6-7.5); PLATELET COUNT 321 10^3/UL (140-415); RED BLOOD COUNT 3.29 10^6/ul (4.20-5.40); RED CELL DISTRIBUTION WIDTH 14.2 % (11.5-14.5); WHITE BLOOD COUNT 9.8 10^3/ul (4.8-10.8)
[2017-02-09 07:05] LABS: CALCIUM 8.2 mg/dl (8.4-10.2); CREATININE 0.47 mg/dl (0.44-1.00); MAGNESIUM 2.1 mg/dl (1.7-2.5); PHOSPHORUS 3.6 mg/dl (2.5-4.9); POTASSIUM 3.1 mmol/L (3.5-5.1)
[2017-02-09] MEDS: ENOXAPARIN 40 MG/0.4 ML SYG SC SCH (08:37)
[2017-02-09 08:38] VITALS: BP 116/65; RESP 20
[2017-02-09] MEDS ORDERED: POTASSIUM CHLORIDE 250 ML IVPB ONE (14:00)
[2017-02-09 15:23] VITALS: BP 127/73; RESP 20
--- NOTE | 2017-02-09 15:44 | PN ---
Date/Time of Note Date/Time of Note DATE: 02/09/17 TIME: 15:40 Assessment/Plan VTE Prophylaxis VTE Prophylaxis Intervention: LMWH Lines/Catheters [facility] Peripheral IV Assessment/Plan Chief Complaint/Hosp Course Assessment/Plan: 41 yo F presented with abdominal pain, positive pancreatitis, unclear source. 1. Acute pancreatitis- Still positive Epigastric pain- but no nausea or vomiting. Appears to be tolerating full liquid diet. Repeat imaging CT chest 2 days ago showed continued pancreatitis, but negative pulmonary embolism, this scan also showed Cluster of hyperdense structures posterior to the right hilum measuring 2.9 x 1.6 cm could represent pulmonary arteriovenous malformations or lymph nodes.Repeat lipase levels from this morning are normal.MRCP showed no choledocholithiasis, but still some pancreas inflammation present. -We will cautiously continue liquid diet, And follow-up GI consult. This is also because the patient has had prior history of esophageal pain in the past, Patient may benefit from EGD or colonoscopy given her continued epigastric Pain 2. Cholelithiasis--- consider outpatient general surgery consult, LFTs are normal 3. Hypertriglyceridemia, repeat slightly better, but still elevated, Started on Lipitor Yesterday 4. DVT prophylaxis: lovenox 5. pre DM-->outpatient f/u Problems: Subjective 24 Hr Interval Summary Free Text/Dictation Patient still with some abdominal pain, but tolerating liquid diet. Had MRCP performed yesterday, still waiting for official and GI eval as they came yesterday to see the patient but patient was off the floor getting MRCP at that time. Exam/Review of Systems Vital Signs Vitals Vital Signs Date Time Temp Pulse Resp B/P Pulse Ox O2 Delivery O2 Flow Rate FiO2 02/09/17 15:23 97.9 68 20 127/73 95 02/09/17 09:00 Nasal Cannula 2.0 Intake and Output 02/08/17 02/08/17 02/09/17 15:00 23:00 07:00 Intake Total 750 ml 1245 ml 1705 ml Balance 750 ml 1245 ml 1705 ml Exam answering questions, alert no mrg lungs clear abd positive tenderness to palpation epigastric area no rashes Results Result Diagram: 02/09/17 0453 02/09/17 0453 Results 24 hrs Laboratory Tests Test 02/09/17 04:53 White Blood Count 9.8 # Red Blood Count 3.29 #L Hemoglobin 9.0 #L Hematocrit 27.8 #L Mean Corpuscular Volume 84.5 Mean Corpuscular Hemoglobin 27.4 L Mean Corpuscular Hemoglobin Concent 32.4 Red Cell Distribution Width 14.2 Platelet Count 321 Mean Platelet Volume 9.7 Neutrophils % 73.0 Lymphocytes % 14.6 L Monocytes % 8.5 Eosinophils % 2.7 Basophils % 0.1 Nucleated Red Blood Cells % 0.0 Neutrophils # 7.1 Lymphocytes # 1.4 Monocytes # 0.8 Eosinophils # 0.3 Basophils # 0.0 Nucleated Red Blood Cells # 0.0 Sodium Level 142 Potassium Level 3.1 L Chloride Level 108 Carbon Dioxide Level 28 Anion Gap 9 Blood Urea Nitrogen 4 L Creatinine 0.47 Glucose Level 115 Calcium Level 8.2 L Phosphorus Level 3.6 Magnesium Level 2.1 Lipase 167 Medications Medications Current Medications Sodium Chloride (NS) 1,000 ml @ 75 mls/hr [id number] IV Last administered on 02/09 05:45; Admin Dose 75 MLS/HR; Start 02/04/17 at 16:36 Ondansetron HCl (Zofran Tab) 4 mg Q6H PRN PO NAUSEA AND/OR VOMITING; Start at 17:00 Ondansetron HCl (Zofran Inj) 4 mg Q6H PRN IV NAUSEA AND/OR VOMITING Last administered on 02/05/17 02:29; Admin Dose 4 MG; Start 02/04/17 at 17:00 Metoclopramide HCl (Reglan) 10 mg Q6H PRN IV NAUSEA AND/OR VOMITING; Start at 17:00 Acetaminophen (Tylenol Tab) 650 mg Q6H PRN PO PAIN LEVEL 1-3 OR FEVER; Start at 17:00 Acetaminophen/ Hydrocodone Bitart ([place] (5/325)) 1 tab Q6H PRN PO MODERATE PAIN LEVEL 4-6 Last administered on 02/09/17 08:35; Admin Dose 1 TAB; Start at 17:00 Morphine Sulfate (morphine) 2 mg Q4H PRN IV SEVERE PAIN LEVEL 7-10 Last administered on 02/07/17 01:21; Admin Dose 2 MG; Start 02/04/17 at 17:00 Docusate Sodium (Colace) 100 mg Q12H PRN PO CONSTIPATION; Start 02/04/17 at 17: 00 Magnesium Hydroxide (Milk Of Mag) 30 ml DAILY PRN PO CONSTIPATION Last administered on 02/07/17 18:27; Admin Dose 30 ML; Start 02/04/17 at 17:00 Enoxaparin Sodium (Lovenox) 40 mg DAILY SC Last administered on 02/07/17 08:33 ; Admin Dose 40 MG; Start 02/05/17 at 09:00 Atorvastatin Calcium 40 mg 40 mg HS PO Last administered on 02/08/17 20:29; Admin Dose 40 MG; Start 02/08/17 at 21:00 Potassium Chloride (KCl 40 MEQ/250 ML NS) 250 ml @ 62.5 mls/hr ONCE ONCE IVPB Last administered on 02/09/17 14:54; Admin Dose 62.5 MLS/HR; Start 02/09/17 at 14:00; Stop 02/09/17 at 17:59 DANISH ORTIZ Feb 09, 2017 15:44
[2017-02-09 20:40] VITALS: BP 127/72; RESP 18
[2017-02-09] MEDS: ATORVASTATIN 40 MG TAB PO SCH (20:49)
[2017-02-10 02:00] VITALS: BP 116/63; RESP 17
[2017-02-10 06:18] LABS: BASOPHILS % 0.1 % (0.0-2.0); EOSINOPHILS # 0.2 10^3/ul (0.0-0.5); EOSINOPHILS % 2.2 % (0.0-7.0); HEMATOCRIT 29.1 % (37.0-47.0); HEMOGLOBIN 9.7 g/dl (12.0-16.0); LYMPHOCYTES # 1.5 10^3/ul (0.8-2.9); LYMPHOCYTES % 16.1 % (15.0-51.0); MEAN CORPUSCULAR HEMOGLOBIN 27.8 pg (29.0-33.0); MEAN CORPUSCULAR HGB CONC 33.3 g/dl (32.0-37.0); MEAN CORPUSCULAR VOLUME 83.4 fl (82.0-101.0); MEAN PLATELET VOLUME 9.3 fl (7.4-10.4); MONOCYTE # 0.8 10^3/ul (0.3-0.9); MONOCYTES % 8.2 % (0.0-11.0); NEUTROPHIL # 6.8 10^3/ul (1.6-7.5); NEUTROPHILS % 71.3 % (39.0-77.0); NUCLEATED RED BLOOD CELLS% 0.2 /100WBC (0.0-0.0); PLATELET COUNT 351 10^3/UL (140-415); RED BLOOD COUNT 3.49 10^6/ul (4.20-5.40); RED CELL DISTRIBUTION WIDTH 13.9 % (11.5-14.5); WHITE BLOOD COUNT 9.6 10^3/ul (4.8-10.8)
[2017-02-10 06:54] LABS: CALCIUM 8.6 mg/dl (8.4-10.2); CREATININE 0.51 mg/dl (0.44-1.00); POTASSIUM 3.2 mmol/L (3.5-5.1)
[2017-02-10 08:00] VITALS: BP 131/73; RESP 20
[2017-02-10] MEDS: ENOXAPARIN 40 MG/0.4 ML SYG SC SCH (09:00)
[2017-02-10] MEDS: SOD CHLORIDE 0.9% 1,000 ML IV SCH ×2 (10:13→22:16)
[2017-02-10 14:00] VITALS: BP 135/72; RESP 18
--- NOTE | 2017-02-10 15:08 | PN ---
Date/Time of Note Date/Time of Note DATE: 02/10/17 TIME: 15:03 Assessment/Plan VTE Prophylaxis VTE Prophylaxis Intervention: SCD's Lines/Catheters IV [facility]ter Type (from [email or web address] Peripheral IV Urinary Cath still in place: No Assessment/Plan Assessment/Plan Assessment * Abdominal pain Acute pancreatitis * cholelithiasis * Hypertriglyceridemia Plan * continua present management * clear liquid * monitor amylase /lipase levels * case discussed with Dr De La Cruz * further orders will depend on clinical course Subjective 24 Hr Interval Summary Free Text/Dictation * course reviewed with RN * No untoward events overnight * patient seen and examined Exam/Review of Systems Vital Signs Vitals Vital Signs Date Time Temp Pulse Resp B/P Pulse Ox O2 Delivery O2 Flow Rate FiO2 02/10/17 08:17 2.0 02/10/17 08:00 98.8 64 20 131/73 96 02/10/17 08:00 Nasal Cannula Intake and Output 02/09/17 02/09/17 02/10/17 15:00 23:00 07:00 Intake Total 2650.0 ml 1150 ml Balance 2650.0 ml 1150 ml Exam Constitutional: alert, oriented Head: atraumatic, normocephalic Neck: non-tender, supple Respiratory: clear to auscultation, normal air movement Cardiovascular: nl pulses, regular rate and rhythm Gastrointestinal: nl liver, spleen, soft Musculoskeletal: nl extremities to inspection, nl gait and stance Extremities: normal pulses Neurological: nl speech, nl strength Results Result Diagram: 02/10/17 0546 02/10/17 0546 Results 24 hrs Laboratory Tests Test 02/10/17 05:46 White Blood Count 9.6 Red Blood Count 3.49 L Hemoglobin 9.7 L Hematocrit 29.1 L Mean Corpuscular Volume 83.4 Mean Corpuscular Hemoglobin 27.8 L Mean Corpuscular Hemoglobin Concent 33.3 Red Cell Distribution Width 13.9 Platelet Count 351 Mean Platelet Volume 9.3 Neutrophils % 71.3 Lymphocytes % 16.1 Monocytes % 8.2 Eosinophils % 2.2 Basophils % 0.1 Nucleated Red Blood Cells % 0.2 H Neutrophils # 6.8 Lymphocytes # 1.5 Monocytes # 0.8 Eosinophils # 0.2 Basophils # 0.0 Nucleated Red Blood Cells # 0.0 Sodium Level 140 Potassium Level 3.2 L Chloride Level 106 Carbon Dioxide Level 28 Anion Gap 9 Blood Urea Nitrogen 4 L Creatinine 0.51 Glucose Level 119 Calcium Level 8.6 Medications Medications Current Medications Sodium Chloride (NS) 1,000 ml @ 75 mls/hr [id number] IV Last administered on 02/10 10:13; Admin Dose 75 MLS/HR; Start 02/04/17 at 16:36 Ondansetron HCl (Zofran Tab) 4 mg Q6H PRN PO NAUSEA AND/OR VOMITING; Start at 17:00 Ondansetron HCl (Zofran Inj) 4 mg Q6H PRN IV NAUSEA AND/OR VOMITING Last administered on 02/05/17 02:29; Admin Dose 4 MG; Start 02/04/17 at 17:00 Metoclopramide HCl (Reglan) 10 mg Q6H PRN IV NAUSEA AND/OR VOMITING; Start at 17:00 Acetaminophen (Tylenol Tab) 650 mg Q6H PRN PO PAIN LEVEL 1-3 OR FEVER; Start at 17:00 Acetaminophen/ Hydrocodone Bitart ([place] (5/325)) 1 tab Q6H PRN PO MODERATE PAIN LEVEL 4-6 Last administered on 02/09/17 08:35; Admin Dose 1 TAB; Start at 17:00 Morphine Sulfate (morphine) 2 mg Q4H PRN IV SEVERE PAIN LEVEL 7-10 Last administered on 02/07/17 01:21; Admin Dose 2 MG; Start 02/04/17 at 17:00 Docusate Sodium (Colace) 100 mg Q12H PRN PO CONSTIPATION; Start 02/04/17 at 17: 00 Magnesium Hydroxide (Milk Of Mag) 30 ml DAILY PRN PO CONSTIPATION Last administered on 02/07/17 18:27; Admin Dose 30 ML; Start 02/04/17 at 17:00 Enoxaparin Sodium (Lovenox) 40 mg DAILY SC Last administered on 02/07/17 08:33 ; Admin Dose 40 MG; Start 02/05/17 at 09:00 Atorvastatin Calcium (Lipitor) 40 mg HS PO Last administered on 02/09/17 20:49 ; Admin Dose 40 MG; Start 02/08/17 at 21:00 KATE HARRIS NP Feb 10, 2017 15:08
--- NOTE | 2017-02-10 15:38 | PN ---
Date/Time of Note Date/Time of Note DATE: 02/10/17 TIME: 15:36 Assessment/Plan VTE Prophylaxis VTE Prophylaxis Intervention: SCD's Lines/Catheters IV [facility]ter Type (from [facility]): Peripheral IV Urinary Cath still in place: No Assessment/Plan Chief Complaint/Hosp Course Assessment/Plan: 41 yo F presented with abdominal pain, positive pancreatitis, unclear source. 1. Acute pancreatitis- Still some positive epigastric pain-but no nausea or vomiting, slightly improved since yesterday. Appears to be tolerating full liquid diet. Repeat imaging CT chest 3 days ago showed continued pancreatitis, but negative pulmonary embolism, this scan also showed Cluster of hyperdense structures posterior to the right hilum measuring 2.9 x 1.6 cm could represent pulmonary arteriovenous malformations or lymph nodes. Repeat lipase levels are nL. MRCP showed no choledocholithiasis, but still some pancreas inflammation present. -cautiously continue liquid diet, And follow-up GI consult rec's. -We will add H2 cris and milk of magnesia as needed 2. Cholelithiasis--- CT abdomen pelvis showed cholelithiasis without evidence of cholecystitis. MRCP showed no choledocholithiasis. -Monitor for now, consider outpatient general surgery follow-up, LFTs are normal 3. Hypertriglyceridemia, repeat slightly better, but still elevated, Started on Lipitor this admission now 4. DVT prophylaxis: lovenox 5. pre DM-->outpatient f/u Problems: Subjective 24 Hr Interval Summary Free Text/Dictation Patient complaining of some heartburn symptoms. Seen by GI team earlier. Otherwise no acute events overnight. Tolerating liquid diet presently. Exam/Review of Systems Vital Signs Vitals Vital Signs Date Time Temp Pulse Resp B/P Pulse Ox O2 Delivery O2 Flow Rate FiO2 02/10/17 08:17 2.0 02/10/17 08:00 98.8 64 20 131/73 96 02/10/17 08:00 Nasal Cannula Intake and Output 02/09/17 02/09/17 02/10/17 15:00 23:00 07:00 Intake Total 2650.0 ml 1150 ml Balance 2650.0 ml 1150 ml Exam answering questions, alert perrl, eomi no mrg lungs clear some abd positive tenderness to palpation epigastric area no LE edema B/L no focal deficits Results Result Diagram: 02/10/17 0546 02/10/17 0546 Results 24 hrs Laboratory Tests Test 02/10/17 05:46 White Blood Count 9.6 Red Blood Count 3.49 L Hemoglobin 9.7 L Hematocrit 29.1 L Mean Corpuscular Volume 83.4 Mean Corpuscular Hemoglobin 27.8 L Mean Corpuscular Hemoglobin Concent 33.3 Red Cell Distribution Width 13.9 Platelet Count 351 Mean Platelet Volume 9.3 Neutrophils % 71.3 Lymphocytes % 16.1 Monocytes % 8.2 Eosinophils % 2.2 Basophils % 0.1 Nucleated Red Blood Cells % 0.2 H Neutrophils # 6.8 Lymphocytes # 1.5 Monocytes # 0.8 Eosinophils # 0.2 Basophils # 0.0 Nucleated Red Blood Cells # 0.0 Sodium Level 140 Potassium Level 3.2 L Chloride Level 106 Carbon Dioxide Level 28 Anion Gap 9 Blood Urea Nitrogen 4 L Creatinine 0.51 Glucose Level 119 Calcium Level 8.6 Medications Medications Current Medications Sodium Chloride (NS) 1,000 ml @ 75 mls/hr [id number] IV Last administered on 02/10 10:13; Admin Dose 75 MLS/HR; Start 02/04/17 at 16:36 Ondansetron HCl (Zofran Tab) 4 mg Q6H PRN PO NAUSEA AND/OR VOMITING; Start at 17:00 Ondansetron HCl (Zofran Inj) 4 mg Q6H PRN IV NAUSEA AND/OR VOMITING Last administered on 02/05/17 02:29; Admin Dose 4 MG; Start 02/04/17 at 17:00 Metoclopramide HCl (Reglan) 10 mg Q6H PRN IV NAUSEA AND/OR VOMITING; Start at 17:00 Acetaminophen (Tylenol Tab) 650 mg Q6H PRN PO PAIN LEVEL 1-3 OR FEVER; Start at 17:00 Acetaminophen/ Hydrocodone Bitart ([place] (5/325)) 1 tab Q6H PRN PO MODERATE PAIN LEVEL 4-6 Last administered on 02/09/17 08:35; Admin Dose 1 TAB; Start at 17:00 Morphine Sulfate (morphine) 2 mg Q4H PRN IV SEVERE PAIN LEVEL 7-10 Last administered on 02/07/17 01:21; Admin Dose 2 MG; Start 02/04/17 at 17:00 Docusate Sodium (Colace) 100 mg Q12H PRN PO CONSTIPATION; Start 02/04/17 at 17: 00 Magnesium Hydroxide (Milk Of Mag) 30 ml DAILY PRN PO CONSTIPATION Last administered on 02/07/17 18:27; Admin Dose 30 ML; Start 02/04/17 at 17:00 Enoxaparin Sodium (Lovenox) 40 mg DAILY SC Last administered on 02/07/17 08:33 ; Admin Dose 40 MG; Start 02/05/17 at 09:00 Atorvastatin Calcium (Lipitor) 40 mg HS PO Last administered on 02/09/17 20:49 ; Admin Dose 40 MG; Start 02/08/17 at 21:00 DANISH ORTIZ Feb 10, 2017 15:38
[2017-02-10] MEDS ORDERED: MAGNESIUM HYDROXIDE 30ML CUP PO PRN (16:00)
[2017-02-10] MEDS ORDERED: FAMOTIDINE 20 MG TAB ONE (16:55)
[2017-02-10] MEDS: FAMOTIDINE 20 MG TAB PO SCH (17:58)
--- NOTE | 2017-02-10 18:49 | CONS ---
Date/Time of Note Date/Time of Note DATE: 02/08/17 TIME: 18:43 Assessment/Plan Assessment/Plan Chief Complaint/Hosp Course REASON FOR CONSULTATION (CONS): Pancreatitis HISTORY OF PRESENT ILLNESS 41-year-old female hospitalized with evidence of pancreatitis slight abnormality liver function tests and slight dilatation of the biliary tree. The patient has been treated with IV fluids, analgesics. She scheduled to undergo MRCP to rule out the possibility of choledocholithiasis. Ultrasound shows cholelithiasis. The patient will be followed and further recommendations pending findings. Denies alcohol abuse. REVIEW OF SYSTEMS: GASTROINTESTINAL AND LIVER: Positive for abdominal pain, nausea, vomiting. Negative for: Anorexia, dysphagia, odynophagia, pyrosis, regurgitation, early satiety, bloating, food intolerance, diarrhea, constipation, change in Bowel Habits, laxative use, hematemesis, melena, hematochezia, anorectal symptoms, incontinence, jaundice. GENERAL AND CONSTITUTIONAL: Negative for: Weakness, tiredness, fever, chills, weight loss, weight gain, skin lesions. New mass, adenopathy. HEENT: Negative for: Headaches, vision changes, icterus, hearing loss, dizziness , vertigo, earache, sore throat. CARDIOVASCULAR: Negative for: Chest pain, SOB, [place], orthopnea, palpitations, lightheadedness, edemas, claudication. RESPIRATORY: Negative for: SOB, cough, sputum production, hemoptysis, pleuritic chest pain, wheezing. GENITOURINARY: Negative for: Dysuria, hematuria, flank pain, urgency, nocturia, polyuria. MUSCULO-SKELETAL: Negative for: Bone pain, arthralgias, deformity, myalgias. HEMATOLOGIC-LYMPHATIC: Negative for: Echymosis, petechia, excessive bleeding, adenopathy, new mass. NEURO-PSYCHIATRIC: Negative for: Syncope, seizures, focal weakness, numbness, depression, anxiety, insomnia, hallucinations, delusions. [GYNECOLOGICAL: Negative for: Menorrhagia, irregular menses, dysmenorrheal, dyspareunia] PAST MEDICAL HISTORY: MEDICAL: [Benign] SURGICAL: [None] TRANSFUSIONS: [None] TATOOS: [None] HABITS: SMOKING: Positive ALCOHOL: Positive, rare DRUGS: [Negative] MEDICATION HISTORY: [As noted] ALLERGIES: [No known allergies] FAMILY HISTORY: [Negative for gastrointestinal neoplasm, non contributory] PHYSICAL EXAMINATION: GENERAL: Well developed, well nourished, alert & oriented x 3, in no acute distress SKIN: No lesions, no stigmata chronic liver disease, no evidence of bleeding diathesis LYMPHATIC: No palpable lymphadenopathy. HEAD: Normocephalic, atraumatic, no tenderness. EYES: Pupils equal reactive to light and accommodation, full extraocular movements, sclera clear, non-icteric, no discharge. EARS/NOSE AND THROAT: Ears normal, nose normal, oropharynx normal, oral membranes well hydrated without lesions. NECK: Supple, no masses, thyroid normal, JVP within normal limits, carotids normal without bruits. CHEST: Inspection within normal limits, breasts grossly normal. CARDIOVASCULAR: Heart: Regular rate and rhythm, no murmurs, gallops or rubs. Peripheral pulses present within normal limits, no cyanosis, clubbing or edemas. No pulsatile abdominal mass RESPIRATORY: Lungs clear to auscultation and percussion, no wheezing, no rubs GASTROINTESTINAL AND LIVER: Abdomen: Soft, moderate epigastric and right upper quadrant tenderness, non-distended, no hernias, no masses, no organomegaly, no ascites, no guarding, no rebound tenderness, normoactive bowel sounds. Rectal: Deferred GENITOURINARY: [Female genitalia within normal limits.] EXTREMITIES: No cyanosis, clubbing or edema. MUSCULO-SKELETAL: Gait and station within normal limits, range of motion adequate. [NEUROLOGIC: Cranial nerves II-XII intact, Motor within normal limits, Sensory within normal limits. Reflexes within normal limits. PSYCHIATRIC: Alert & oriented x 3, mood/affect/judgement adequate] IMPRESSION: Acute pancreatitis Rule out biliary/choledocholithiasis Cholelithiasis DISCUSSION & RECOMMENDATIONS: Continue present regimen Review MRI/MRCP BRAXTON De La Cruz's office Fax copy to Attn Medical Records Problems: Consultation Date/Type/Reason Admit Date/Time Date of Consultation: Feb 08, 2017 Psychological: nl mood/affect, no complaints Social History Smoking Status: Light tobacco smoker Exam/Review of Systems Vital Signs Vitals Vital Signs Date Time Temp Pulse Resp B/P Pulse Ox O2 Delivery O2 Flow Rate FiO2 02/10/17 14:00 98.8 65 18 135/72 96 02/10/17 08:17 2.0 02/10/17 08:00 Nasal Cannula Intake and Output 02/09/17 02/09/17 02/10/17 15:00 23:00 07:00 Intake Total 2650.0 ml 1150 ml Balance 2650.0 ml 1150 ml Results Result Diagram: 02/10/17 0546 02/10/17 0546 Results 24 hrs Laboratory Tests Test 02/10/17 05:46 White Blood Count 9.6 Red Blood Count 3.49 L Hemoglobin 9.7 L Hematocrit 29.1 L Mean Corpuscular Volume 83.4 Mean Corpuscular Hemoglobin 27.8 L Mean Corpuscular Hemoglobin Concent 33.3 Red Cell Distribution Width 13.9 Platelet Count 351 Mean Platelet Volume 9.3 Neutrophils % 71.3 Lymphocytes % 16.1 Monocytes % 8.2 Eosinophils % 2.2 Basophils % 0.1 Nucleated Red Blood Cells % 0.2 H Neutrophils # 6.8 Lymphocytes # 1.5 Monocytes # 0.8 Eosinophils # 0.2 Basophils # 0.0 Nucleated Red Blood Cells # 0.0 Sodium Level 140 Potassium Level 3.2 L Chloride Level 106 Carbon Dioxide Level 28 Anion Gap 9 Blood Urea Nitrogen 4 L Creatinine 0.51 Glucose Level 119 Calcium Level 8.6 Medications Medications Current Medications Sodium Chloride (NS) 1,000 ml @ 75 mls/hr [id number] IV Last administered on 02/10 10:13; Admin Dose 75 MLS/HR; Start 02/04/17 at 16:36 Ondansetron HCl (Zofran Tab) 4 mg Q6H PRN PO NAUSEA AND/OR VOMITING; Start at 17:00 Ondansetron HCl (Zofran Inj) 4 mg Q6H PRN IV NAUSEA AND/OR VOMITING Last administered on 02/05/17 02:29; Admin Dose 4 MG; Start 02/04/17 at 17:00 Metoclopramide HCl (Reglan) 10 mg Q6H PRN IV NAUSEA AND/OR VOMITING; Start at 17:00 Acetaminophen (Tylenol Tab) 650 mg Q6H PRN PO PAIN LEVEL 1-3 OR FEVER; Start at 17:00 Acetaminophen/ Hydrocodone Bitart ([place] (5/325)) 1 tab Q6H PRN PO MODERATE PAIN LEVEL 4-6 Last administered on 02/09/17 08:35; Admin Dose 1 TAB; Start at 17:00 Morphine Sulfate (morphine) 2 mg Q4H PRN IV SEVERE PAIN LEVEL 7-10 Last administered on 02/07/17 01:21; Admin Dose 2 MG; Start 02/04/17 at 17:00 Docusate Sodium (Colace) 100 mg Q12H PRN PO CONSTIPATION; Start 02/04/17 at 17: 00 Atorvastatin Calcium (Lipitor) 40 mg HS PO Last administered on 02/09/17 20:49 ; Admin Dose 40 MG; Start 02/08/17 at 21:00 Famotidine (Pepcid) 20 mg BID PO Last administered on 02/10/17 17:58; Admin Dose 20 MG; Start 02/10/17 at 18:00 Magnesium Hydroxide (Milk Of Mag) 30 ml BID PRN PO CONSTIPATION; Start at 16:00 BRAXTON DE LA CRUZ MD Feb 10, 2017 18:49
[2017-02-10 20:28] VITALS: BP 134/78; RESP 18
[2017-02-10] MEDS: ATORVASTATIN 40 MG TAB PO SCH (20:38)
[2017-02-11 02:47] VITALS: BP 122/63; RESP 18
[2017-02-11 05:21] LABS: BASOPHILS % 0.2 % (0.0-2.0); EOSINOPHILS # 0.3 10^3/ul (0.0-0.5); EOSINOPHILS % 2.5 % (0.0-7.0); HEMATOCRIT 30.4 % (37.0-47.0); LYMPHOCYTES # 1.8 10^3/ul (0.8-2.9); LYMPHOCYTES % 16.7 % (15.0-51.0); MEAN CORPUSCULAR HEMOGLOBIN 27.2 pg (29.0-33.0); MEAN CORPUSCULAR HGB CONC 32.9 g/dl (32.0-37.0); MEAN CORPUSCULAR VOLUME 82.6 fl (82.0-101.0); MEAN PLATELET VOLUME 9.3 fl (7.4-10.4); MONOCYTE # 0.9 10^3/ul (0.3-0.9); MONOCYTES % 8.2 % (0.0-11.0); NEUTROPHIL # 7.4 10^3/ul (1.6-7.5); NEUTROPHILS % 70.1 % (39.0-77.0); PLATELET COUNT 384 10^3/UL (140-415); RED BLOOD COUNT 3.68 10^6/ul (4.20-5.40); RED CELL DISTRIBUTION WIDTH 14.1 % (11.5-14.5); WHITE BLOOD COUNT 10.5 10^3/ul (4.8-10.8)
[2017-02-11 05:42] LABS: CALCIUM 8.5 mg/dl (8.4-10.2); CREATININE 0.56 mg/dl (0.44-1.00); POTASSIUM 3.4 mmol/L (3.5-5.1)
[2017-02-11 06:10] LABS: PHOSPHORUS 4.7 mg/dl (2.5-4.9)
[2017-02-11 07:40] VITALS: BP 131/69; RESP 20
[2017-02-11] MEDS: FAMOTIDINE 20 MG TAB PO SCH ×2 (08:51→20:19)
[2017-02-11] MEDS ORDERED: POTASSIUM CHLORIDE (SR) 20 MEQ TAB PO STA (12:59)
--- NOTE | 2017-02-11 13:02 | PN ---
Date/Time of Note Date/Time of Note DATE: 02/11/17 TIME: 13:00 Assessment/Plan VTE Prophylaxis VTE Prophylaxis Intervention: SCD's Lines/Catheters [facility] Peripheral IV Urinary Cath still in place: No Assessment/Plan Chief Complaint/Hosp Course Assessment/Plan: 41 yo F presented with abdominal pain, positive pancreatitis, unclear source. 1. Acute pancreatitis- Still some positive epigastric pain-but no nausea or vomiting, slightly improved since yesterday. Appears to be tolerating full liquid diet. Repeat imaging CT chest 4 days ago showed continued pancreatitis, but negative pulmonary embolism, this scan also showed Cluster of hyperdense structures posterior to the right hilum measuring 2.9 x 1.6 cm could represent pulmonary arteriovenous malformations or lymph nodes. Repeat lipase levels are nL. MRCP showed no choledocholithiasis, but still some pancreas inflammation present. -cautiously continue liquid diet, advance per GI recommendations - H2 cris and milk of magnesia as needed -We will also add simethicone as needed for gas symptoms 2. Cholelithiasis--- CT abdomen pelvis showed cholelithiasis without evidence of cholecystitis. MRCP showed no choledocholithiasis. -Monitor for now, consider outpatient general surgery follow-up, LFTs are normal 3. Hypertriglyceridemia, repeat slightly better, but still elevated, Started on Lipitor this admission now 4. DVT prophylaxis: lovenox 5. pre DM-->outpatient f/u Problems: Subjective 24 Hr Interval Summary Free Text/Dictation Patient has less abdominal pain today, complaining of some gas symptoms however. Exam/Review of Systems Vital Signs Vitals Vital Signs Date Time Temp Pulse Resp B/P Pulse Ox O2 Delivery O2 Flow Rate FiO2 02/11/17 07:40 98.3 70 20 131/69 95 02/11/17 02:51 2.0 02/10/17 08:00 Nasal Cannula Intake and Output 02/10/17 02/10/17 02/11/17 15:00 23:00 07:00 Intake Total 375 ml 2120 ml 1485 ml Balance 375 ml 2120 ml 1485 ml Exam answering questions, alert perrl, eomi no mrg lungs clear some abd positive tenderness to palpation epigastric area no LE edema B/L no focal deficits Results Result Diagram: 02/11/17 0459 02/11/17 0452 Results 24 hrs Laboratory Tests Test 02/11/17 04:52 02/11/17 04:59 Sodium Level 141 Potassium Level 3.4 L Chloride Level 106 Carbon Dioxide Level 28 Anion Gap 10 Blood Urea Nitrogen 4 L Creatinine 0.56 Glucose Level 118 Calcium Level 8.5 Phosphorus Level 4.7 Magnesium Level 2.0 White Blood Count 10.5 Red Blood Count 3.68 L Hemoglobin 10.0 L Hematocrit 30.4 L Mean Corpuscular Volume 82.6 Mean Corpuscular Hemoglobin 27.2 L Mean Corpuscular Hemoglobin Concent 32.9 Red Cell Distribution Width 14.1 Platelet Count 384 Mean Platelet Volume 9.3 Neutrophils % 70.1 Lymphocytes % 16.7 Monocytes % 8.2 Eosinophils % 2.5 Basophils % 0.2 Nucleated Red Blood Cells % 0.0 Neutrophils # 7.4 Lymphocytes # 1.8 Monocytes # 0.9 Eosinophils # 0.3 Basophils # 0.0 Nucleated Red Blood Cells # 0.0 Medications Medications Current Medications Sodium Chloride (NS) 1,000 ml @ 75 mls/hr [id number] IV Last administered on 02/10 22:16; Admin Dose 75 MLS/HR; Start 02/04/17 at 16:36 Ondansetron HCl (Zofran Tab) 4 mg Q6H PRN PO NAUSEA AND/OR VOMITING; Start at 17:00 Ondansetron HCl (Zofran Inj) 4 mg Q6H PRN IV NAUSEA AND/OR VOMITING Last administered on 02/05/17 02:29; Admin Dose 4 MG; Start 02/04/17 at 17:00 Metoclopramide HCl (Reglan) 10 mg Q6H PRN IV NAUSEA AND/OR VOMITING; Start at 17:00 Acetaminophen (Tylenol Tab) 650 mg Q6H PRN PO PAIN LEVEL 1-3 OR FEVER; Start at 17:00 Acetaminophen/ Hydrocodone Bitart ([place] (5/325)) 1 tab Q6H PRN PO MODERATE PAIN LEVEL 4-6 Last administered on 02/09/17 08:35; Admin Dose 1 TAB; Start at 17:00 Morphine Sulfate (morphine) 2 mg Q4H PRN IV SEVERE PAIN LEVEL 7-10 Last administered on 02/07/17 01:21; Admin Dose 2 MG; Start 02/04/17 at 17:00 Docusate Sodium (Colace) 100 mg Q12H PRN PO CONSTIPATION; Start 02/04/17 at 17: 00 Atorvastatin Calcium (Lipitor) 40 mg HS PO Last administered on 02/10/17 20:38 ; Admin Dose 40 MG; Start 02/08/17 at 21:00 Famotidine (Pepcid) 20 mg BID PO Last administered on 02/11/17 08:51; Admin Dose 20 MG; Start 02/10/17 at 18:00 Magnesium Hydroxide (Milk Of Mag) 30 ml BID PRN PO CONSTIPATION; Start at 16:00 DANISH ORTIZ Feb 11, 2017 13:02
--- NOTE | 2017-02-11 14:46 | PN ---
Date/Time of Note Date/Time of Note DATE: 02/11/17 TIME: 14:44 Assessment/Plan VTE Prophylaxis VTE Prophylaxis Intervention: SCD's Lines/Catheters IV Catheter Type (from [facility]): Peripheral IV Urinary Cath still in place: No Assessment/Plan Assessment/Plan Assessment * Abdominal pain Acute pancreatitis * cholelithiasis * Hypertriglyceridemia Plan * continua present management * progress diet * monitor amylase /lipase levels * case discussed with Dr De La Cruz * further orders will depend on clinical course Subjective 24 Hr Interval Summary Free Text/Dictation * course reviewed * patient seen and examined * No abdominal pain * no untoward events overnight Exam/Review of Systems Vital Signs Vitals Vital Signs Date Time Temp Pulse Resp B/P Pulse Ox O2 Delivery O2 Flow Rate FiO2 02/11/17 07:40 98.3 70 20 131/69 95 02/11/17 02:51 2.0 02/10/17 08:00 Nasal Cannula Intake and Output 02/10/17 02/10/17 02/11/17 15:00 23:00 07:00 Intake Total 375 ml 2120 ml 1485 ml Balance 375 ml 2120 ml 1485 ml Exam Constitutional: alert, oriented Neck: non-tender, supple Respiratory: clear to auscultation, normal air movement Cardiovascular: nl pulses, regular rate and rhythm Gastrointestinal: non-tender, soft Musculoskeletal: nl extremities to inspection, nl gait and stance Extremities: normal pulses Neurological: nl speech, nl strength Skin: nl turgor Results Result Diagram: 02/11/17 0459 02/11/17 0452 Results 24 hrs Laboratory Tests Test 02/11/17 04:52 02/11/17 04:59 Sodium Level 141 Potassium Level 3.4 L Chloride Level 106 Carbon Dioxide Level 28 Anion Gap 10 Blood Urea Nitrogen 4 L Creatinine 0.56 Glucose Level 118 Calcium Level 8.5 Phosphorus Level 4.7 Magnesium Level 2.0 White Blood Count 10.5 Red Blood Count 3.68 L Hemoglobin 10.0 L Hematocrit 30.4 L Mean Corpuscular Volume 82.6 Mean Corpuscular Hemoglobin 27.2 L Mean Corpuscular Hemoglobin Concent 32.9 Red Cell Distribution Width 14.1 Platelet Count 384 Mean Platelet Volume 9.3 Neutrophils % 70.1 Lymphocytes % 16.7 Monocytes % 8.2 Eosinophils % 2.5 Basophils % 0.2 Nucleated Red Blood Cells % 0.0 Neutrophils # 7.4 Lymphocytes # 1.8 Monocytes # 0.9 Eosinophils # 0.3 Basophils # 0.0 Nucleated Red Blood Cells # 0.0 Medications Medications Current Medications Ondansetron HCl (Zofran Tab) 4 mg Q6H PRN PO NAUSEA AND/OR VOMITING; Start at 17:00 Ondansetron HCl (Zofran Inj) 4 mg Q6H PRN IV NAUSEA AND/OR VOMITING Last administered on 02/05/17 02:29; Admin Dose 4 MG; Start 02/04/17 at 17:00 Metoclopramide HCl (Reglan) 10 mg Q6H PRN IV NAUSEA AND/OR VOMITING; Start at 17:00 Acetaminophen (Tylenol Tab) 650 mg Q6H PRN PO PAIN LEVEL 1-3 OR FEVER; Start at 17:00 Acetaminophen/ Hydrocodone Bitart ([place] (5/325)) 1 tab Q6H PRN PO MODERATE PAIN LEVEL 4-6 Last administered on 02/09/17 08:35; Admin Dose 1 TAB; Start at 17:00 Morphine Sulfate (morphine) 2 mg Q4H PRN IV SEVERE PAIN LEVEL 7-10 Last administered on 02/07/17 01:21; Admin Dose 2 MG; Start 02/04/17 at 17:00 Docusate Sodium (Colace) 100 mg Q12H PRN PO CONSTIPATION; Start 02/04/17 at 17: 00 Atorvastatin Calcium (Lipitor) 40 mg HS PO Last administered on 02/10/17 20:38 ; Admin Dose 40 MG; Start 02/08/17 at 21:00 Famotidine (Pepcid) 20 mg BID PO Last administered on 02/11/17 08:51; Admin Dose 20 MG; Start 02/10/17 at 18:00 Magnesium Hydroxide (Milk Of Mag) 30 ml BID PRN PO CONSTIPATION; Start at 16:00 Simethicone (Mylicon) 80 mg Q6H PRN PO DISTENSION/GAS/BLOATING Last administered on 02/11/17 13:25; Admin Dose 80 MG; Start 02/11/17 at 13:00 KATE HARRIS NP Feb 11, 2017 14:46
[2017-02-11 15:01] VITALS: BP 134/82; RESP 20
[2017-02-11] MEDS: ATORVASTATIN 40 MG TAB PO SCH (20:19)
[2017-02-11 20:53] VITALS: BP 117/67; RESP 17
[2017-02-12 02:00] VITALS: BP 100/57; RESP 18
[2017-02-12 05:28] LABS: BASOPHILS % 0.3 % (0.0-2.0); EOSINOPHILS # 0.3 10^3/ul (0.0-0.5); EOSINOPHILS % 2.7 % (0.0-7.0); HEMATOCRIT 31.8 % (37.0-47.0); HEMOGLOBIN 10.9 g/dl (12.0-16.0); LYMPHOCYTES % 17.3 % (15.0-51.0); MEAN CORPUSCULAR HEMOGLOBIN 28.3 pg (29.0-33.0); MEAN CORPUSCULAR HGB CONC 34.3 g/dl (32.0-37.0); MEAN CORPUSCULAR VOLUME 82.6 fl (82.0-101.0); MEAN PLATELET VOLUME 9.2 fl (7.4-10.4); MONOCYTE # 0.8 10^3/ul (0.3-0.9); NEUTROPHIL # 8.4 10^3/ul (1.6-7.5); NEUTROPHILS % 71.5 % (39.0-77.0); PLATELET COUNT 409 10^3/UL (140-415); RED BLOOD COUNT 3.85 10^6/ul (4.20-5.40); RED CELL DISTRIBUTION WIDTH 13.7 % (11.5-14.5); WHITE BLOOD COUNT 11.7 10^3/ul (4.8-10.8)
[2017-02-12 05:53] LABS: CALCIUM 9.2 mg/dl (8.4-10.2); CREATININE 0.53 mg/dl (0.44-1.00); POTASSIUM 4.1 mmol/L (3.5-5.1)
[2017-02-12 05:55] LABS: PHOSPHORUS 5.2 mg/dl (2.5-4.9)
[2017-02-12 08:41] VITALS: BP 118/74; RESP 20
[2017-02-12] MEDS: FAMOTIDINE 20 MG TAB PO SCH (09:10)
--- NOTE | 2017-02-12 13:57 | PDOCDIS ---
Discharge Instructions CONDITION Patient Condition: Stable HOME CARE INSTRUCTIONS: Special Diet: low cholesterol ACTIVITY: Activity Restrictions: Slowly Increase Activity FOLLOW UP/APPOINTMENTS Follow-up Plan Please take your medications as prescribed. Please follow-up with her regular doctor in the clinic in the next 1 week. DANISH ORTIZ Feb 12, 2017 13:57
[2017-02-12] MEDS ORDERED: UDMOM PO (13:58)
[2017-02-12] MEDS ORDERED: ATOR40TA68 PO (13:58)
[2017-02-12] MEDS ORDERED: ONDA4TAB95 PO (13:58)
[2017-02-12] MEDS ORDERED: FAMO20TA18 PO (13:58)
[2017-02-12] MEDS ORDERED: MYL80 PO (13:58)
--- NOTE | 2017-02-12 16:51 | DS ---
DATE OF ADMISSION: 02/04/2017 DATE OF DISCHARGE: 02/12/2017 HISTORY OF PRESENT ILLNESS/HOSPITAL COURSE: This is a 41-year- old female originally admitted on February 04, 2017, being discharged home on February 12, 2017. The patient came in with abdominal pain symptoms. She was admitted, found with positive pancreatitis. She was made n.p.o., and she was also found with gallstones but no evidence of any cholecystitis. An MRCP showed no signs of any choledocholithiasis. In any event, she was admitted, initially made n.p.o., given pain control medications, IV fluids as well. Her lipase levels were trended as well. She continued to have some abdominal pain, but this slowly resolved over her hospital stay. She was also given simethicone for some gas symptoms in her GI system. She was also found with elevated triglyceride levels and started on statin medication for that. Over the course of her hospital stay, abdominal pain symptoms slowly improved. Her pancreatitis slowly resolved. She was able to ambulate and tolerate a p.o. diet. She was seen by GI team during this hospital stay, who recommended continued conservative management. She will be discharged home today in improved condition. She will be sent with atorvastatin 40 mg q.h.s., famotidine 20 mg b.i.d., milk of magnesia 30 mL p.o. b.i.d. p.r.n., Zofran 4 mg q.6h p.r.n., simethicone 80 mg p.o. q.6h. p.r.n. She can follow with regular doctor in clinic in the next 1- 2 weeks. FINAL DIAGNOSES: 1. Abdominal pain secondary to acute pancreatitis, now resolved. 2. Positive cholelithiasis, but no evidence of any cholecystitis. 3. Hypertriglyceridemia. TIME SPENT: Time spent discharging patient, 45 minutes. Dictated By: Adrian Rosen MD /[email or web address] /Document#: [id number]
== END 2017-02-12 15:30 | disposition home or self-care (01) | DRG 444 ==
LOC: FTE 10:39 → PP2 15:37
PROVIDERS: ADMIT Internal Medicine; ATTEND Internal Medicine
DX: K80.20 Calculus of gallbladder without cholecystitis without obstruction (principal); K85.90 Acute pancreatitis without necrosis or infection, unspecified; E78.1 Pure hyperglyceridemia; K59.00 Constipation, unspecified; R73.03 Prediabetes; Z72.0 Tobacco use
CPT/HCPCS: 36415; 71275; 74177; 74181; 76705; 80048; 80053; 80061; 80306; 81001; 83036; 83690; 83735; 84100; 84478; 84703; 85025; 96361; 96374; 96375; J1170; J1650; J1885; J2270; J2405; J3480; J7030; Q9967

== ENCOUNTER 2018-10-06 16:32 | Emergency (ER) | payer MEDICAID ==
[~2018-10-06] VITALS: Ht 167.6 cm; Wt 86.7 kg
[~2018-10-06 16:32] MED LIST: ATOR40TA68 PO; FAMO20TA18 PO; ONDA4TAB95 PO; SIME80TA60 PO; UDMOM PO
[2018-10-06 16:37] VITALS: Ht 167.6 cm; Wt 86.7 kg
[2018-10-06] MEDS ORDERED: ONDANSETRON 4 MG INJ IV STA (17:45)
[2018-10-06] MEDS ORDERED: SOD CHLORIDE 0.9% 1,000 ML IV ONE (18:00)
[2018-10-06] MEDS ORDERED: LIDOCAINE/MYLANTA 40 ML BTL PO STA (18:31)
[2018-10-06] MEDS ORDERED: KETOROLAC 15 MG INJ IV STA (18:31)
[2018-10-06] MEDS ORDERED: BELLADONNA/PHENOBARBITAL TAB PO STA (18:31)
[2018-10-06] MEDS ORDERED: FAMOTIDINE 20 MG INJ IV STA (18:31)
--- NOTE | 2018-10-06 20:33 | ERD ---
ER Documentation Chief Complaint Chief Complaint LEFT FLANK PAIN X 2 DAYS. DENIES DYSURIA/PAINFUL URINATION. HPI This is a 43-year-old female with a past medical history of hyperlipidemia, gastritis, pancreatitis who is presenting with 2 days of waxing and waning moderate aching cramping burning epigastric and left upper quadrant abdominal pain radiating to the left flank. The patient endorses nausea but no vomiting. She endorses no black or bloody or tarry stools. She does endorse nonbilious nonbloody loose watery brown diarrhea this morning, but she only had one episode. She denies any constipation. She denies dysuria or hematuria or urgency or frequency. She does not know if her symptoms are related to food. She does not endorse any alleviating or exacerbating factors. The patient denies feeling sick recently. The patient denies fever or chills. The patient has had no headache or vision changes. The patient does not endorse neck or back pain. The patient denies lightheadedness or dizziness. The patient has had no chest pain or trouble breathing. The patient has had no focal deficits. The patient has had no weakness or numbness or tingling to the face or extremities. ROS All systems reviewed and are negative except as per history of present illness. Medications Home Meds Active Scripts Ondansetron Hcl* (Ondansetron Hcl*) 4 Mg Tablet, 4 MG PO Q6H PRN for NAUSEA AND/OR VOMITING, #60 TAB Prov:DANISH ORTIZ S. 02/12/17 Magnesium Hydroxide* (Sutton' MOM*) 30 Ml Susp, 30 ML PO BID PRN for CONSTIPATION, #1 BOTTLE Prov:DANISH ORTIZ S. 02/12/17 Simethicone* (Mylicon*) 80 Mg Tab, 80 MG PO Q6H PRN for DISTENSION/GAS/BLOATING, #60 TAB Prov:DANISH ORTIZ S. 02/12/17 Famotidine* (Famotidine*) 20 Mg Tablet, 20 MG PO BID, #60 TAB 2 Refills Prov:SARAH ORTIZP S. 02/12/17 Atorvastatin* (Atorvastatin*) 40 Mg Tablet, 40 MG PO HS, #30 TAB 2 Refills Prov:DANISH ORTIZ S. 02/12/17 Allergies Allergies: Coded Allergies: No Known Allergy (Unverified , 02/04/17) PMhx/Soc History of Surgery: No Anesthesia Reaction: No Hx Neurological Disorder: No Hx Respiratory Disorders: No Hx Cardiac Disorders: No Hx Psychiatric Problems: No Hx Miscellaneous Medical Probl: Yes (pancreatitis) Hx Alcohol Use: No Hx Substance Use: No Hx Tobacco Use: No Smoking Status: Never smoker FmHx Family History: No diabetes Physical Exam Vitals Vital Signs Date Temp Pulse Resp B/P (MAP) Pulse Ox O2 O2 Flow FiO2 Time Delivery Rate 10/06/18 98.0 81 18 120/69 99 Room Air 18:49 (86) 10/06/18 99.0 88 20 119/78 98 Room Air 18:10 (92) 10/06/18 99.5 105 18 133/78 100 16:37 (96) Physical Exam Const: No acute distress Head: Atraumatic Eyes: Normal Conjunctiva ENT: Normal External Ears, Nose and Mouth. Neck: Full range of motion. No meningismus. Resp: Clear to auscultation bilaterally Cardio: Regular rate and rhythm, no murmurs Abd: Soft, non distended. Epigastric and left upper quadrant abdominal tenderness, mild. No guarding or rebound. Normal bowel sounds Skin: No petechiae or rashes Back: No midline or flank tenderness Ext: No cyanosis, or edema Neur: Awake and alert Psych: Normal Mood and Affect Result Diagram: 10/06/18 1755 10/06/181754 Results 24 hrs Laboratory Tests Test 10/06/18 17:52 10/06/18 17:55 POC Beta HCG, Qualitative NEGATIVE White Blood Count 15.0 10^3/ul Red Blood Count 4.70 10^6/ul Hemoglobin 12.8 g/dl Hematocrit 38.0 % Mean Corpuscular Volume 80.9 fl Mean Corpuscular Hemoglobin 27.2 pg Mean Corpuscular Hemoglobin Concent 33.7 g/dl Red Cell Distribution Width 13.7 % Platelet Count 307 10^3/UL Mean Platelet Volume 9.9 fl Immature Granulocytes % 0.500 % Neutrophils % 82.4 % Lymphocytes % 10.2 % Monocytes % 6.0 % Eosinophils % 0.7 % Basophils % 0.2 % Nucleated Red Blood Cells % 0.0 /100WBC Immature Granulocytes # 0.080 10^3/ul Neutrophils # 12.4 10^3/ul Lymphocytes # 1.5 10^3/ul Monocytes # 0.9 10^3/ul Eosinophils # 0.1 10^3/ul Basophils # 0.0 10^3/ul Nucleated Red Blood Cells # 0.0 10^3/ul Urine Color STRAW Urine Clarity CLEAR Urine pH 6.0 Urine Specific [place] 1.004 Urine Ketones 1+ mg/dL Urine Nitrite NEGATIVE mg/dL Urine Bilirubin NEGATIVE mg/dL Urine Urobilinogen 1+ mg/dL Urine Leukocyte Esterase NEGATIVE Noe/ul Urine Microscopic RBC 2 /HPF Urine Microscopic WBC 1 /HPF Urine Squamous Epithelial Cells FEW /HPF Urine Bacteria FEW /HPF Urine Hemoglobin 1+ mg/dL Urine Glucose NEGATIVE mg/dL Urine Total Protein NEGATIVE mg/dl Sodium Level 136 mmol/L Potassium Level 3.4 mmol/L Chloride Level 101 mmol/L Carbon Dioxide Level 27 mmol/L Anion Gap 8 Blood Urea Nitrogen 3 mg/dl Creatinine 0.49 mg/dl Est Glomerular Filtrat Rate mL/min > 60 mL/min Glucose Level 135 mg/dl Calcium Level 9.0 mg/dl Total Bilirubin 1.0 mg/dl Direct Bilirubin 0.00 mg/dl Indirect Bilirubin 1.0 mg/dl Aspartate Amino Transf (AST/SGOT) 24 IU/L Alanine Aminotransferase (ALT/SGPT) 14 IU/L Alkaline Phosphatase 79 IU/L Total Protein 7.4 g/dl Albumin 4.0 g/dl Globulin 3.40 g/dl Albumin/Globulin Ratio 1.17 Lipase 198 U/L Current Medications Medications Dose Sig/Terrie Start Time Status Last (Trade) Ordered Route PRN Stop Time Admin Dose Reason Admin Sodium 1,000 ml @ Q1H ONCE 10/06/18 DC 10/06/18 Chloride 1,000 mls/hr IV 18:00 18:04 10/06/18 18:59 Ondansetron 4 mg ONCE STAT 10/06/18 DC 10/06/18 HCl (Zofran IV 17:45 18:04 Inj) 10/06/18 17:47 Famotidine 20 mg ONCE STAT 10/06/18 DC 10/06/18 (Pepcid Iv) IV 18:31 18:57 10/06/18 18:34 40 ml ONCE STAT 10/06/18 DC 10/06/18 Miscellaneous PO 18:31 18:57 Medication 10/06/18 18:34 (Gi Cocktail (2)) Belladonna/ 2 tab ONCE STAT 10/06/18 DC 10/06/18 Phenobarbital PO 18:31 18:57 () 10/06/18 18:34 Ketorolac 15 mg ONCE STAT 10/06/18 DC 10/06/18 Tromethamine IV 18:31 18:57 (Toradol) 10/06/18 18:34 Procedures/MDM MDM The patient's presentation warrants further investigation. Previous medical records, if available, were reviewed. LABS The patient's laboratory testing was obtained and reviewed. No emergent treatment was required unless described below. CBC: Leukocytosis, potentially reactive. No E/o severe anemia or thrombocytopenia Chemistry: No E/o severe acidosis or alkalosis or renal failure or liver disease or diabetic ketoacidosis. Mild hypokalemia, not emergent. Lipase: No E/o pancreatitis Urine: No E/o acute infection or hematuria TREATMENT/DISPOSITION The patient presents for epigastric and left upper quadrant abdominal pain. The patient was treated for symptoms of possible gastritis with IV fluids, Pepcid and a GI cocktail. The patient was given Toradol and Zofran for symptom control as well. This did significantly improve her symptoms. While the patient does endorse left upper quadrant tenderness, the patient's lipase is unremarkable and I have low suspicion for pancreatitis at this time. The patient does not have any evidence of peritonitis. The patient does not have clinical symptoms concerning for mesenteric ischemia or ischemic colitis. The patient does not have right upper quadrant tenderness, and I have low suspicion for gallstones, cholecystitis or biliary colic. The patient does not have any right lower quadrant tenderness, or periumbilical tenderness. I have low suspicion for appendicitis. The patient does not have suprapubic tenderness. I have decreased suspicion for cystitis. The patient does not have any left lower quadrant tenderness, and I have low suspicion for diverticulosis or div erticulitis. The patient does not have any flank tenderness on exam. The patient does not have gross hematuria. I have decreased suspicion for nephrolithiasis or renal colic. The patient does not have any palpable pulsatile mass or severe abdominal pain radiating to the back. I have low suspicion for aortic aneurysm, dissection or rupture. DISCHARGE Upon reevaluation of the patient, symptoms have improved. No emergent diagnoses were identified. At this time, I feel that the patient stable for discharge. The patient was instructed to follow-up with a primary care physician in 1-3 days. The patient will be given strict precautions with which to return to the emergency department. Prescriptions: Sally Fitzpatrick Disclaimer: Inadvertent spelling and grammatical errors are likely due to EHR/dictation software use and do not reflect on the overall quality of patient care. Note that the electronic time recorded on this note does not necessarily reflect the actual time of the patient encounter. Departure Diagnosis: Primary Impression: Epigastric pain Additional Impressions: Right upper quadrant abdominal pain Nausea Leukocytosis Leukocytosis type: unspecified Qualified Codes: D72.829 - Elevated white blood cell count, unspecified Hypokalemia Condition: Stable Patient Instructions: Epigastric Pain (Uncertain Cause), Nausea Additional Instructions: Thank you for for coming to [facility] for your care today. Please ask your nurse or provider if you have questions about your care today and do not leave until all your questions have been answered. Please use any medications given as directed and follow-up with your doctor (or the doctor you were referred to) in the next 1-3 days. If you do not have a primary care doctor you may follow up at the [facility] or formerly [facility] (listed below). You may also use motrin and tylenol as needed for fever and/or pain unless instructed otherwise by your provider or nurse. Indications for more urgent follow-up have been discussed, but you may return to the Emergency Department at ANY time for any worrisome or worsening symptoms. If you have abdominal pain, please know that no test or exam you received is perfect and you should follow up within 8 hours for continued pain. If you had any imaging studies today, such as an X-Ray or CT Scan, these studies will be reviewed later by a radiologist. You will be called if there are important findings that were not identified today, so make sure the contact information you provided at registration is correct. If you received any narcotic pain control medicine today, such as Vicodin, Morphine or Dilaudid, your coordination and judgment may be affected for a number of hours. Please do not drive or operate heavy machinery, and you may want someone to assist you at home. If you were given a prescription for narcotic medication, be aware that it is very addictive- use sparingly and only if necessary. PLEASE SEEK FURTHER EVALUATION AND MANAGEMENT AT YOUR DOCTORS OFFICE WITHIN THE NEXT 1-3 DAYS. IT IS YOUR RESPONSIBILITY TO MAKE AN APPOINTMENT FOR FOLOW-UP CARE. IF YOU HAVE A PRIMARY DOCTOR, PLEASE CALL THEIR OFFICE TO SCHEDULE AN APPOINTMENT FOR FOLLOW UP. IF YOU DO NOT HAVE A PRIMARY DOCTOR YOU CAN CALL OUR PHYSICIAN REFERRAL HOTLINE AT IF YOU CAN NOT AFFORD TO SEE A PHYSICIAN YOU CAN CHOSE FROM THE FOLLOWING [facility] CLINICS: [facility] [address] [facility] [address] [facility] [facility] [address] [facility] [address] [facility] [address] [facility] [facility]. [address] ANA JOSEPH MD October 06, 2018 20:33
[2018-10-06] MEDS ORDERED: ONDA8TAB9 PO (20:34)
[2018-10-06] MEDS ORDERED: FAMO-96 PO (20:34)
[2018-10-06 21:09] VITALS: BP 122/64; PULSE 79; RESP 16
== END 2018-10-06 21:12 | disposition home or self-care (01) ==
LOC: E/R 16:32
DX: D72.829 Elevated white blood cell count, unspecified (principal); E87.6 Hypokalemia; R11.0 Nausea
CPT/HCPCS: 36415; 80053; 81001; 81025; 83690; 85025; 96374; 96375; J1885; J2405; J7030; Z7502; Z7610